=== PATIENT | female | born 1985 | race Caucasian/White ===

== ENCOUNTER → 2018-04-19 22:15 | Outpatient (REF) | payer OTHER, SELFPAY ==
[2018-04-19 22:51] LABS: ALT 12 U/L (12-78); AST 18 U/L (15-37); Albumin 3.9 g/dL (3.4-5.0); Alkaline Phosphatase 66 U/L (46-116); Anion Gap 8.7 mmol/L (3-11); BUN 15 mg/dL (7-18); Bilirubin, Total 0.5 mg/dL (0.2-1.0); CO2 27.3 mmol/L (21.0-32.0); CREATININE 0.95 mg/dL (0.55-1.02); Calcium 8.6 mg/dL (8.5-10.1); Chloride 105 mmol/L (98-107); Glucose 86 mg/dL (70-100); Sodium 141 mmol/L (136-145); Total Protein 6.9 g/dL (6.4-8.2)
== END ==
LOC: LBO 22:15
PROVIDERS: PCP Nurse Practitioner Family; Visit Provider Nurse Practitioner Family
DX: D69.6 Thrombocytopenia, unspecified (principal)
CPT/HCPCS: 36415; 80053

== ENCOUNTER 2018-06-13 11:55 | Outpatient (CLI) | payer OTHER, SELFPAY ==
[2018-06-13 12:25] LABS: Abs Immature Grans 0.01 k/cumm (0.0-0.09); Absolute Basophil Count 0.07 k/cumm (0.0-0.2); Absolute Lymphocyte Count 1.25 k/cumm (1.2-3.4); Absolute Monocyte Count 0.48 k/cumm (0.11-0.7); Absolute Neutrophil Count 2.79 k/cumm (1.2-6.7); Basophils % 1.5; Bilirubin Negative (Negative); Blood Negative (Negative); Clarity Clear; Eosinophils % 4.2; Glucose Negative (Negative); HCT 36.1 % (36.0-46.0); HGB 11.5 g/dL (12.0-15.5); Immature Grans % 0.2; Ketones Negative (Negative); Leukocyte Esterase Trace (Negative); Mean Corp. HGB Concentration 31.9 g/dL (32.0-36.0); Mean Corpuscular Hemoglobin 26.6 pg (27.0-33.0); Mean Corpuscular Volume 83.6 fL (80-95); Mean Platelet Volume 9.2 fL (8.0-11.0); Neutrophils % 58.1; Nitrite Negative (Negative); Platelet Count 292 x1000/uL (130-400); RBC 4.32 m/cumm (4.00-5.20); RBC Distribution Width 14.5 % (11.7-14.6); pH 7.5 (5-8)
[2018-06-13 12:36] LABS: Bacteria Moderate HPF (Negative); C & S Indicated? No/Sq. Contamination; Casts Negative LPF (Negative); Crystals Negative HPF (Negative); Epithelial Cells Moderate HPF (Negative); Mucus Heavy (Negative)
[2018-06-13 13:23] LABS: ALT 13 U/L (12-78); AST 17 U/L (15-37); Albumin 3.6 g/dL (3.4-5.0); Alkaline Phosphatase 62 U/L (46-116); Bilirubin, Direct 0.11 mg/dL (0.00-0.20); Bilirubin, Total 0.5 mg/dL (0.2-1.0); TSH 1.32 uIU/mL (0.358-3.74); Total Protein 6.2 g/dL (6.4-8.2)
[2018-06-13 14:02] LABS: Vitamin D 25 Total 16.1 ng/ml (30-100)
[2018-06-13 14:42] LABS: Vitamin B12 340 pg/mL (193-986)
== END 2018-06-13 12:15 ==
PROVIDERS: PCP Nurse Practitioner Family; Visit Provider Psychiatry & Neurology Neurology
DX: G35 Multiple sclerosis (principal); R53.83 Other fatigue; R79.89 Other specified abnormal findings of blood chemistry
CPT/HCPCS: 36415; 80076; 82306; 81003; 81015; 82607; 84443; 85025

== ENCOUNTER 2018-08-13 00:44 | Outpatient (CLI) | payer OTHER, SELFPAY ==
[2018-08-13] MEDS: Gadoterate meglumine 20 ML VIAL IVP (14:36)
--- NOTE | 2018-08-13 14:49 | DI.MRI_ITS ---
SYMPTOMS/DIAGNOSIS: MULTIPLE SCLEROSIS MRI OF THE BRAIN: Comparison is made with April,. T2 and FLAIR sagittal, T1, T2, FLAIR and gradient-echo axial and post gadolinium T1 axial and coronal sequences were performed. A few small foci of high T2 signal are seen in the posterior left parietal lobe, unchanged. A few other tiny lesions are seen in the right frontal and right parietal lobes. There is no evidence of enhancement. No new lesions are identified. There is no evidence of hemorrhage. The vascular flow voids appear intact. Sinuses and mastoid air cells appear clear. There is distortion at the globes related to mascara. IMPRESSION: Stable small scattered high signal lesions in the white matter without evidence of enhancement, consistent with patient's history of multiple sclerosis.
== END 2018-08-13 01:04 ==
PROVIDERS: PCP Nurse Practitioner Family; Visit Provider Psychiatry & Neurology Neurology
DX: G35 Multiple sclerosis (principal)
CPT/HCPCS: 70553

== ENCOUNTER 2018-09-04 10:45 | Outpatient (CLI) | payer OTHER, SELFPAY ==
[2018-09-04 11:44] LABS: Bilirubin Negative (Negative); Blood Negative (Negative); Clarity Clear; Glucose Negative (Negative); Ketones Trace mg/dL (Negative); Leukocyte Esterase Small (Negative); Nitrite Negative (Negative); Specific Gravity 1.025 (1.005-1.025); Urobilinogen 0.2 EU/dL (Up TO 0.2); pH 6.5 (5-8)
[2018-09-04 12:11] LABS: Abs Immature Grans 0.02 k/cumm (0.0-0.09); Absolute Basophil Count 0.07 k/cumm (0.0-0.2); Absolute Eosinophil Count 0.13 k/cumm (0.0-0.7); Absolute Lymphocyte Count 1.14 k/cumm (1.2-3.4); Absolute Monocyte Count 0.39 k/cumm (0.11-0.7); Absolute Neutrophil Count 2.55 k/cumm (1.2-6.7); Basophils % 1.6; HCT 34.6 % (36.0-46.0); Immature Grans % 0.5; Lymphocytes % 26.5; Mean Corp. HGB Concentration 31.8 g/dL (32.0-36.0); Mean Corpuscular Hemoglobin 25.9 pg (27.0-33.0); Mean Corpuscular Volume 81.4 fL (80-95); Mean Platelet Volume 9.3 fL (8.0-11.0); Monocytes % 9.1; Neutrophils % 59.3; Platelet Count 303 x1000/uL (130-400); RBC 4.25 m/cumm (4.00-5.20); RBC Distribution Width 14.6 % (11.7-14.6)
[2018-09-04 12:59] LABS: Bacteria Few HPF (Negative); C & S Indicated? No/Sq. Contamination; Casts Negative LPF (Negative); Crystals Negative HPF (Negative); Epithelial Cells Moderate HPF (Negative); Mucus Moderate (Negative); RBC Negative (0-2)
[2018-09-04 15:19] LABS: ALT 12 U/L (12-78); AST 19 U/L (15-37); Albumin 3.7 g/dL (3.4-5.0); Alkaline Phosphatase 54 U/L (46-116); Anion Gap 7.5 mmol/L (3-11); BUN 17 mg/dL (7-18); Bilirubin, Total 0.7 mg/dL (0.2-1.0); CO2 25.5 mmol/L (21.0-32.0); CREATININE 0.81 mg/dL (0.55-1.02); Calcium 8.8 mg/dL (8.5-10.1); Chloride 107 mmol/L (98-107); Glucose 78 mg/dL (70-100); Sodium 140 mmol/L (136-145); Total Protein 6.5 g/dL (6.4-8.2)
== END 2018-09-04 11:05 ==
PROVIDERS: PCP Nurse Practitioner Family
DX: G35 Multiple sclerosis (principal)
CPT/HCPCS: 36415; 80053; 81003; 81015; 85025

== ENCOUNTER 2018-10-11 12:46 | Outpatient (CLI) | payer OTHER, SELFPAY ==
[2018-10-11 13:56] LABS: Iron 19 ug/dL (50-175); Total Iron Binding Capacity 363 ug/dL (250-450); Transferrin Sat 5 % (15-50)
[2018-10-11 14:07] LABS: TSH 1.59 uIU/mL (0.358-3.74)
[2018-10-14 12:52] LABS: Varicella IgG Antibody Positive
== END 2018-10-11 13:06 ==
PROVIDERS: PCP Legal Medicine; Visit Provider Legal Medicine
DX: D64.9 Anemia, unspecified (principal); E05.00 Thyrotoxicosis with diffuse goiter without thyrotoxic crisis or storm; Z11.59 Encounter for screening for other viral diseases
CPT/HCPCS: 36415; 86787; 83540; 83550; 84443

== ENCOUNTER 2018-10-24 14:49 | Outpatient (CLI) | payer OTHER, SELFPAY ==
[2018-10-24 15:39] LABS: Abs Immature Grans 0.01 k/cumm (0.0-0.09); Absolute Basophil Count 0.05 k/cumm (0.0-0.2); Absolute Lymphocyte Count 1.43 k/cumm (1.2-3.4); Absolute Neutrophil Count 2.63 k/cumm (1.2-6.7); Eosinophils % 4.1; HCT 34.3 % (36.0-46.0); HGB 10.8 g/dL (12.0-15.5); Immature Grans % 0.2; Lymphocytes % 29.7; Mean Corp. HGB Concentration 31.5 g/dL (32.0-36.0); Mean Corpuscular Hemoglobin 25.7 pg (27.0-33.0); Mean Corpuscular Volume 81.7 fL (80-95); Mean Platelet Volume 9.9 fL (8.0-11.0); Monocytes % 10.4; Neutrophils % 54.6; Platelet Count 266 x1000/uL (130-400); White Blood Cell Count 4.82 k/cumm (4.4-10.8)
[2018-10-24 15:58] LABS: Bilirubin Negative (Negative); Blood Negative (Negative); Clarity Clear; Glucose Negative (Negative); Ketones Trace mg/dL (Negative); Leukocyte Esterase Negative (Negative); Nitrite Negative (Negative)
[2018-10-24 17:29] LABS: ALT 15 U/L (12-78); AST 22 U/L (15-37); Albumin 3.6 g/dL (3.4-5.0); Alkaline Phosphatase 69 U/L (46-116); Anion Gap 9.3 mmol/L (3-11); BUN 22 mg/dL (7-18); Bilirubin, Total 0.3 mg/dL (0.2-1.0); CO2 27.7 mmol/L (21.0-32.0); CREATININE 0.73 mg/dL (0.55-1.02); Calcium 8.6 mg/dL (8.5-10.1); Chloride 107 mmol/L (98-107); Glucose 76 mg/dL (70-100); Potassium 3.9 mmol/L (3.5-5.1); Sodium 144 mmol/L (136-145); Total Protein 6.5 g/dL (6.4-8.2); Vitamin B12 369 pg/mL (193-986); Vitamin D 25 Total 12.4 ng/ml (30-100)
== END 2018-10-24 15:09 ==
PROVIDERS: PCP Legal Medicine; Visit Provider Nurse Practitioner Adult Health
DX: R53.83 Other fatigue (principal); R79.89 Other specified abnormal findings of blood chemistry; G35 Multiple sclerosis
CPT/HCPCS: 36415; 80053; 82306; 81003; 82607; 85025

== ENCOUNTER 2018-10-31 01:35 | Outpatient (RCR) | payer OTHER, SELFPAY ==
[2018-10-31] MEDS: Normal Saline Flush 10 ML SYR IVP (08:15)
== END 2018-10-31 23:59 | disposition home or self-care (01) ==
LOC: INF 01:35
PROVIDERS: PCP Legal Medicine; Visit Provider Internal Medicine
DX: G35 Multiple sclerosis (principal)
CPT/HCPCS: 96365; J2930

== ENCOUNTER 2018-11-01 01:24 | Outpatient (RCR) | payer OTHER, SELFPAY ==
[2018-11-01] MEDS: Normal Saline Flush 10 ML SYR IVP (07:16)
== END 2018-12-01 23:59 | disposition home or self-care (01) ==
LOC: INF 01:24
PROVIDERS: PCP Legal Medicine; Visit Provider Internal Medicine
DX: G35 Multiple sclerosis (principal)
CPT/HCPCS: 96365; J2930

== ENCOUNTER 2018-12-26 12:50 | Outpatient (CLI) | payer OTHER, SELFPAY ==
[2018-12-26 13:40] LABS: Abs Immature Grans 0.02 k/cumm (0.0-0.09); Absolute Basophil Count 0.07 k/cumm (0.0-0.2); Absolute Eosinophil Count 0.15 k/cumm (0.0-0.7); Absolute Lymphocyte Count 1.62 k/cumm (1.2-3.4); Absolute Monocyte Count 0.53 k/cumm (0.11-0.7); Absolute Neutrophil Count 3.57 k/cumm (1.2-6.7); Basophils % 1.2; Eosinophils % 2.5; HCT 34.9 % (36.0-46.0); Immature Grans % 0.3; Lymphocytes % 27.2; Mean Corp. HGB Concentration 31.5 g/dL (32.0-36.0); Mean Corpuscular Hemoglobin 25.6 pg (27.0-33.0); Mean Corpuscular Volume 81.4 fL (80-95); Mean Platelet Volume 9.2 fL (8.0-11.0); Monocytes % 8.9; Neutrophils % 59.9; Platelet Count 344 x1000/uL (130-400); RBC 4.29 m/cumm (4.00-5.20); RBC Distribution Width 15.1 % (11.7-14.6); White Blood Cell Count 5.96 k/cumm (4.4-10.8)
== END 2018-12-26 13:10 ==
PROVIDERS: PCP Legal Medicine; Visit Provider Legal Medicine
DX: D64.9 Anemia, unspecified (principal)
CPT/HCPCS: 36415; 85025

== ENCOUNTER 2019-03-11 11:16 | Outpatient (REF) | payer OTHER, SELFPAY ==
--- NOTE | 2019-03-11 11:00 | PAPFT_PTH ---
PATIENT: Adriana Saxena LOC: [facility] U#:[id number] AGE/SX: 33/F ROOM: RE03/11/[address]: Robin Foster MD : [id number] BED: DIS: 03/11/2019 SPEC #: [id number] RECD: 03/11/19 12:55 STATUS: HEATHER RELouisa #: [id number] MILANA: 03/11/19 11:[address]: Robin Foster DEPT: [facility] Cytology RECD BY: Marlena Luque ENTERED: 03/11/19 12:55 SP TYPE: PAPFT OTHR DR: Sonya Pagan Tissues: 1 - CX/ENDOCX FOR PAP SMEARS Procedures: PAP THIN PREP/UVM Screening HPV DNA PROBE Comments: [id number]
== END 2019-03-11 11:36 ==
LOC: LBN 11:16
PROVIDERS: PCP Legal Medicine; Visit Provider Obstetrics & Gynecology
DX: Z12.4 Encounter for screening for malignant neoplasm of cervix (principal); Z11.51 Encounter for screening for human papillomavirus (HPV)
CPT/HCPCS: 88142; 87624

== ENCOUNTER 2019-04-07 00:30 | Outpatient (CLI) | payer OTHER, SELFPAY ==
--- NOTE | 2019-04-07 14:06 | DI.MRI_ITS ---
SYMPTOM/DIAGNOSIS: MS WITH RECENT FLARE UP, NOW STABLE, G35 BRAIN MRI: Comparison is made with 08/13/18. T 2 and FLAIR sagittal, T 1, T 2, FLAIR, diffusion and gradient echo axial sequences were performed. Several scattered foci of high signal in the white matter are again noted, unchanged when compared with the previous exam. The largest lesion in the left parietal lobe, adjacent to the posterior horn of the left lateral ventricle. No new abnormalities are identified. The ventricles remain normal in size. IMPRESSION: Stable white matter lesions.
== END 2019-04-07 00:50 ==
PROVIDERS: PCP Legal Medicine; Visit Provider Psychiatry & Neurology Neurology
DX: G35 Multiple sclerosis (principal); R90.82 White matter disease, unspecified
CPT/HCPCS: 70551

== ENCOUNTER 2019-05-15 10:07 | Outpatient (CLI) | payer OTHER, SELFPAY ==
[2019-05-15 10:48] LABS: Abs Immature Grans 0.02 k/cumm (0.0-0.09); Absolute Basophil Count 0.07 k/cumm (0.0-0.2); Absolute Eosinophil Count 0.11 k/cumm (0.0-0.7); Absolute Lymphocyte Count 1.17 k/cumm (1.2-3.4); Absolute Monocyte Count 0.39 k/cumm (0.11-0.7); Absolute Neutrophil Count 2.53 k/cumm (1.2-6.7); Basophils % 1.6; Eosinophils % 2.6; HCT 40.1 % (36.0-46.0); HGB 12.9 g/dL (12.0-15.5); Immature Grans % 0.5; Lymphocytes % 27.3; Mean Corp. HGB Concentration 32.2 g/dL (32.0-36.0); Mean Corpuscular Hemoglobin 26.5 pg (27.0-33.0); Mean Corpuscular Volume 82.3 fL (80-95); Mean Platelet Volume 9.5 fL (8.0-11.0); Monocytes % 9.1; Neutrophils % 58.9; Platelet Count 339 x1000/uL (130-400); RBC 4.87 m/cumm (4.00-5.20); RBC Distribution Width 15.1 % (11.7-14.6); White Blood Cell Count 4.29 k/cumm (4.4-10.8)
[2019-05-15 11:27] LABS: Iron 38 ug/dL (50-175)
[2019-05-15 11:51] LABS: Vitamin D 25 Total 18.7 ng/ml (30-100)
[2019-05-15 12:03] LABS: ALT 13 U/L (14-59); AST 17 U/L (15-37); Albumin 4.1 g/dL (3.4-5.0); Alkaline Phosphatase 60 U/L (46-116); Anion Gap 7.2 mmol/L (3-11); BUN 17 mg/dL (7-18); Bilirubin, Total 0.6 mg/dL (0.2-1.0); CO2 26.8 mmol/L (21.0-32.0); CREATININE 0.81 mg/dL (0.55-1.02); Calculated LDL 90 mg/dL; Chloride 107 mmol/L (98-107); Cholesterol 185 mg/dL (50-200); Folate 10.4 ng/mL (8.6-20.0); Glucose 81 mg/dL (70-100); HDL Cholesterol 86 mg/dL (40-60); Potassium 4.1 mmol/L (3.5-5.1); Sodium 141 mmol/L (136-145); TSH 1.62 uIU/mL (0.36-3.74); Total Protein 7.1 g/dL (6.4-8.2); Triglyceride 46 mg/dL (30-150); Vitamin B12 406 pg/mL (193-986)
[2019-05-15 12:14] LABS: PHOSPHORUS 3.5 mg/dL (2.6-4.7)
[2019-05-16 11:54] LABS: Parathyroid Hormone,Intact 64 pg/ml (19-88)
[2019-05-16 14:03] LABS: Copper, Serum 1.14 mcg/mL (0.75-1.45)
[2019-05-18 10:50] LABS: Thiamine (Vitamin B1), WB 112 nmol/L (70-180)
== END 2019-05-15 10:27 ==
PROVIDERS: PCP Nurse Practitioner Family
DX: R10.13 Epigastric pain (principal); E61.1 Iron deficiency; E21.3 Hyperparathyroidism, unspecified; K80.20 Calculus of gallbladder without cholecystitis without obstruction; E55.9 Vitamin D deficiency, unspecified
CPT/HCPCS: 36415; 80053; 80061; 82306; 82525; 82607; 82746; 83540; 83735; 83970; 84100; 84425; 84443; 85025

== ENCOUNTER 2019-07-21 13:13 | Emergency (ER) | payer OTHER, SELFPAY ==
[2019-07-21 13:17] VITALS: BP 131/68; PULSE 84; RESP 18; TEMP 36.5; O2SAT 99
--- NOTE | 2019-07-21 13:33 | ED.GENADUL_ITS ---
Discharge Plan Disposition Patient Disposition: HOME Condition: Good Discharge Details Chief Complaint: Sorethroat Clinical Impression: Thyroid nodule Primary Care Provider: Javon Bach ED Provider: Erika Khan Home Meds and New Rx's Prescriptions: Continued oxcarbazepine [Trileptal] 150 mg tablet 150 mg PO BID RF: 0 valacyclovir 500 mg tablet 500 mg PO Q12H Qty: 60 RF: 3 methylphenidate HCl [Ritalin] 5 mg tablet 20 mg PO DAILY RF: 0 escitalopram oxalate [Lexapro] 10 mg tablet 20 mg PO DAILY RF: 0 ergocalciferol (vitamin D2) 50,000 unit capsule 50,000 unit PO QWEEK Qty: 12 RF: 3 baclofen 10 MG tablet 10 mg PO QID PRNRF: 0 Discharge Instructions Instructions: Thyroid Nodules (ED) Additional Instructions: Large nodule was noted on your thyroid. Plan for this to be biopsied by Dr. Torres as scheduled. Please follow-up with primary care. If you develop difficulty swallowing, shortness of breath or the new/worsening symptoms please seek care urgently once again. Referrals: Javon Bach NP [Primary Care Provider] - Kwadwo Torres MD [ [facility] STAFF PHYSICIAN] - Discharge Data Discharge Date/Time-TO BE ENTERED AT DEPARTURE: 07/21/19 15:38 Medical Decision Making Patient is a 33-year-old female presents today with chief complaint of right- sided throat pain. The pain is worse with swallowing. Pain is been consistent over the past month. Reports constant discomfort that is worsened with swallowing. No fevers or chills. Despite antibiotic treatment, has progr essively worsened. No thyroid dysfunction. Patient has a notable palpable mass on the right side of the throat with well-defined edges. Unable to palpate the inferior most aspect of the mass. May be coming off of the thyroid. Difficult to be differentiated thyroid from this mass but the left-sided thyroid is normal. Swelling well. No stridor. No palpable lymphadenopathy. Lungs are clear. Plan for ultrasound to evaluate for the pathology. Also obtain baseline labs, particularly for thyroid dysfunction. Ultrasound reviewed by radiologist FINDINGS: Palpable abnormality corresponds to a circumscribed hypervascular nodule measuring 5.1 x 2.4 x 2.9 cm. This compresses the normal thyroid tissue. The left lobe is normal in size and appearance. The isthmus measures 3 millimeters in thickness and appears normal. IMPRESSION: Palpable abnormality corresponds to a large thyroid nodule. FNA is recommended for further evaluation. TSH WNL. Labs are otherwise unremarkable. Discussed these findings with the patient. Advised the fine-needle aspiration is recommended. We will attempt to set this up for aspiration soon as possible. Consulted with ENT who will perform the recommended fine-needle aspiration as soon as possible. I did recheck to the patient's primary care provider and pass along this information. ENT advised this likely a follicular nodule. We were able to make an upcoming appointment for the patient. She is given strict return precautions. All her questions and concerns were addressed she is in agreement this plan. HPI General Mode of arrival: ambulatory . Date/Time Provider Initiated Documentation: 07/21/19 13:15 . Limitations to Documentation: no limitations . Information obtained by: patient and RN notes reviewed . HPI Narrative: Patient is a pleasant 33-year-old female presenting today with chief complaint of right-sided sore throat. Reports that the right-sided discomfort began approximately 1 month ago. Was seen by her primary care attempted with treatment of azithromycin with no improvement in her symptoms. It was noted yesterday by coworker to have swelling on the right side of the throat. No known thyroid dysfunction. She reports she has had this checked multiple times historically no abnormalities previously noted. She denies any difficulty breathing, shortness of breath, difficulty swallowing. She does have discomfort with swallowing and indicates that her right mid trachea is area of discomfort. Related Data Home Medications Medication Instructions Recorded Confirmed baclofen 10 mg PO QID PRN 04/23/17 07/21/19 oxcarbazepine 150 mg tablet 150 mg PO BID tab 10/29/18 07/21/19 valacyclovir 500 mg tablet 500 mg PO Q12H #60 tab 10/29/18 07/21/19 escitalopram oxalate 10 mg tablet 20 mg PO DAILY 02/27/19 07/21/19 methylphenidate HCl 5 mg tablet 20 mg PO DAILY tab 02/27/19 07/21/19 ergocalciferol (vitamin D2) 50,000 50,000 unit PO QWEEK #12 cap 05/08/19 07/21/19 unit capsule Previous Rx's Medication Instructions Recorded valacyclovir 500 mg tablet 500 mg PO Q12H #60 tab 10/29/18 ergocalciferol (vitamin D2) 50,000 50,000 unit PO QWEEK #12 cap 05/08/19 unit capsule Allergies Allergy/AdvReac Type Severity Reaction Status Date / Time Penicillins Allergy Verified 07/21/19 13:22 DERMABOND GLUE Allergy Unknown Uncoded 07/21/19 13:22 General Stated Complaint: Sorethroat KATIE: 3 Review of Systems Constitutional Constitutional: Reports as per HPI, Denies chills, Denies fever(s), Denies headache(s), Reports poor appetite and Reports weight loss (14lb weight loss over last month) Eyes Eyes: Reports as per HPI, Denies eye discharge and Denies irritation ENT Ears, Nose, Mouth, and Throat: Reports as per HPI and Denies headache(s) Cardiovascular Cardiovascular: Reports as per HPI, Denies chest pain and Denies dyspnea Respiratory Respiratory: Reports as per HPI and Denies dyspnea Gastrointestinal Gastrointestinal: Reports as per HPI, Denies abdominal pain, Denies change in bowel habits, Denies nausea and Denies vomiting Integumentary/Breasts Skin/Breast: Reports as per HPI and Denies rash Neurologic Neurologic: Reports as per HPI and Denies headache(s) [facility] Medical History Contraception, device intrauterine (Chronic) inserted 2018 Multiple sclerosis (Chronic) 4 enhancing lesions on MRI 2018. unchanged. Obesity (BMI 30-39.9) (Chronic) Hx of morbid obesity. s/p gastric sleeve surgery. Surgical History Bariatric surgery status (Resolved) s/p gastric sleeve H/O arthroscopic knee surgery (Resolved) History of tonsillectomy (Resolved) Social History Smoking/Tobacco Use Status: Current every day Alcohol Intake: current Alcohol Intake frequency: a few times a month Drug use: Never Household members: family Number of Children: 1 current occupation: [employer] Do you feel safe in your relationship?: Yes Female Reproductive History Menstrual control method: copper IUCD History History 3 Para Hx # Term Pregnancies 1 Multiple births Hx # Pregnancies Ectopic pregnancies AB induced Hx Number of Living Children 1 AB spontaneous 1 Exam Const General: cooperative, healthy appearing, comfortable, no acute distress, well developed and well groomed Nutritional Appearance: average body habitus and well nourished Orientation: alert and awake [facility] Head: normal to inspection, normocephalic and atraumatic Ears: hearing grossly normal bilaterally, external ears normal and TM's normal bilaterally General nose exam: external nose normal and nares normal Face and sinus: normal facial exam, sinuses nontender and face symmetric Mouth: oral mucosae normal, lip normal, tongue normal, oropharynx normal and moist mucous membranes Teeth and gingiva: dentition normal Throat: posterior oropharynx normal, tonsils normal and uvula midline Eyes General: appearance normal, both eyes and all related structures Neck Neck: full ROM, no lymphadenopathy, no meningeal signs, trachea midline and anterior neck swelling (as drawn below) Neck images: 1. area of localized swelling, unable to palpate the inferior most aspect. No erythema, warmth. No fluctuance. Unable to palpate right side of thyroid, what is palpable feels normal. Resp Effort & Inspection: normal respiratory effort, able to speak in complete se ntences and no respiratory distress Auscultation: clear to auscultation bilaterally, no rales, no rhonchi and no wheezes Cardio Rate: regular rate Rhythm: regular rhythm Heart Sounds: S1 normal and S2 normal Skin General skin exam: no rashes or lesions noted Neuro General: alert and awake Cognition: normal cognition Speech: speech normal Gait: normal gait Psych Appearance: grossly normal and well kempt Mental Status: mental status grossly normal Speech and Movement: speech and movement normal Course Vital Signs Vital signs: Vital Signs Temperature 36.5 C 07/21/19 13:17 Pulse 84 07/21/19 13:17 Respiratory Rate 18 07/21/19 13:17 Blood Pressure 131/68 07/21/19 13:17 Pulse Oximetry 99 07/21/19 13:17 Temperature 36.5 C 07/21/19 13:17 Temperature Source Oral 07/21/19 13:17 Pulse 84 07/21/19 13:17 Respiratory Rate 18 07/21/19 13:17 Respiratory Effort Non-Labored 07/21/19 13:25 Blood Pressure 131/68 07/21/19 13:17 Blood Pressure Position Sitting 07/21/19 13:17 Pulse Oximetry 99 07/21/19 13:17 Oxygen Delivery Method Room Air 07/21/19 13:17 Oxygen Flow Rate 0 07/21/19 13:17 Pain Level 5 07/21/19 13:17
--- NOTE | 2019-07-21 13:39 | DI.US_ITS ---
EXAM: US SOFT TISSUE HEAD OR NECK CLINICAL HISTORY: palpable mass right side of trachea TECHNIQUE: Ultrasound performed using standard protocol. COMPARISON: MRI - CERVICAL SPINE W/WO from 11/09/2016 FINDINGS: Palpable abnormality corresponds to a circumscribed hypervascular nodule measuring 5.1 x 2.4 x 2.9 c m. This compresses the normal thyroid tissue. The left lobe is normal in size and appearance. The i sthmus measures 3 millimeters in thickness and appears normal. IMPRESSION: Palpable abnormality corresponds to a large thyroid nodule. FNA is recommended for further evaluatio n.
[2019-07-21] MEDS: Normal Saline Flush 10 ML SYR IVP (13:54)
[2019-07-21 14:05] LABS: Abs Immature Grans 0.01 k/cumm (0.0-0.09); Absolute Eosinophil Count 0.15 k/cumm (0.0-0.7); Absolute Lymphocyte Count 1.37 k/cumm (1.2-3.4); Absolute Monocyte Count 0.36 k/cumm (0.11-0.7); Absolute Neutrophil Count 2.59 k/cumm (1.2-6.7); Basophils % 2.2; Eosinophils % 3.3; HCT 37.2 % (36.0-46.0); HGB 12.1 g/dL (12.0-15.5); Immature Grans % 0.2; Lymphocytes % 29.9; Mean Corp. HGB Concentration 32.5 g/dL (32.0-36.0); Mean Corpuscular Hemoglobin 27.3 pg (27.0-33.0); Mean Platelet Volume 9.4 fL (8.0-11.0); Monocytes % 7.9; Neutrophils % 56.5; Platelet Count 314 x1000/uL (130-400); RBC 4.43 m/cumm (4.00-5.20); RBC Distribution Width 13.9 % (11.7-14.6); White Blood Cell Count 4.58 k/cumm (4.4-10.8)
[2019-07-21 14:27] LABS: ALT 12 U/L (14-59); AST 14 U/L (15-37); Albumin 3.8 g/dL (3.4-5.0); Alkaline Phosphatase 53 U/L (46-116); Anion Gap 5.8 mmol/L (3-11); BUN 17 mg/dL (7-18); Bilirubin, Total 0.6 mg/dL (0.2-1.0); CO2 28.2 mmol/L (21.0-32.0); Calcium 8.5 mg/dL (8.5-10.1); Chloride 106 mmol/L (98-107); Glucose 70 mg/dL (70-100); Potassium 3.5 mmol/L (3.5-5.1); Sodium 140 mmol/L (136-145); TSH (W/Ref FT4) 1.07 uIU/mL (0.36-3.74); Total Protein 6.7 g/dL (6.4-8.2)
== END 2019-07-21 15:38 | disposition home or self-care (01) ==
PROVIDERS: Emergency Provider Physician Assistant; PCP Nurse Practitioner Family
DX: E04.1 Nontoxic single thyroid nodule (principal)
CPT/HCPCS: 36415; 76536; 80053; 99284; 84443; 85025

== ENCOUNTER 2019-07-24 13:51 | Outpatient (CLI) | payer OTHER, SELFPAY ==
--- NOTE | 2019-07-24 13:00 | DI.CT_ITS ---
EXAM: CT NECK W CLINICAL HISTORY: RT SIDED NECK PAIN, ? MASS, KNOWN RT THYROID NODULE TECHNIQUE: Imaging Protocol: Axial computed tomography images with coronal and sagittal reformatted images were created and reviewed CONTRAST MATERIAL: Intravenous: Omnipaque 350 Contrast volume:100 mL contrast route:IV - Oral: No COMPARISON: No exams were available for comparison FINDINGS: Parotids/submandibular gland: Normal. Lymphadenopathy: There is scattered lymph nodes seen all measuring less than 8 mm in short axis diam eter which are physiologic in nature. Carotids/Jugular: Within normal limits. Soft tissues: The floor the mouth is unremarkable. The epiglottis and vocal cords are within normal limits. Images through both lung apices are unremarkable. Thyroid gland: There is a complex mass in the right lobe of the thyroid gland which measures 3.1 cent imeters AP x 3.1 centimeters transverse x 5.3 centimeters craniocaudally. There are enhancing nodula r components internally. The mass displaces the trachea to the left with mild narrowing of the trans verse diameter of the trachea. There is no infiltration of the surrounding soft tissues. The left l obe of the thyroid gland is unremarkable. The nasopharynx, oropharynx, hypopharynx and larynx are unremarkable. Bones: The cervical spine is unremarkable. Paranasal sinuses: Clear. IMPRESSION: 5.3 centimeter complex cystic and solid mass in the right lobe of the thyroid gland. The mass causes leftward deviation of the trachea. There is no infiltration of the surrounding soft tissues. No ce rvical adenopathy is present. Biopsy of the right thyroid nodule should be considered. DATA REPOSITORY: All CT scans at this facility are submitted to the National Radiology Data Registry (NRDR) Dose Index Registry (DIR) with the [employer] (ACR). RADIATION OPTIMIZATION: All CT scans at this facility use at least one of these dose optimization te chniques: automated exposure control; mA and/or kV adjustment per patient size (includes targeted exa ms where dose is matched to clinical indication); or iterative reconstruction.
[2019-07-24] MEDS: Omnipaque 350 MG/ML 100 ML BTL IJ (13:51)
== END 2019-07-24 14:11 ==
PROVIDERS: PCP Nurse Practitioner Family; Visit Provider Otolaryngology
DX: M54.2 Cervicalgia (principal); E04.1 Nontoxic single thyroid nodule; R59.0 Localized enlarged lymph nodes
CPT/HCPCS: 70491; J3490

== ENCOUNTER 2019-08-15 09:31 | Outpatient (REF) | payer OTHER, SELFPAY ==
[2019-08-15 13:02] LABS: HCT 35.9 % (36.0-46.0); HGB 11.2 g/dL (12.0-15.5); Mean Corp. HGB Concentration 31.2 g/dL (32.0-36.0); Mean Corpuscular Hemoglobin 26.7 pg (27.0-33.0); Mean Corpuscular Volume 85.5 fL (80-95); Mean Platelet Volume 10.1 fL (8.0-11.0); Platelet Count 310 x1000/uL (130-400); RBC Distribution Width 14.1 % (11.7-14.6); White Blood Cell Count 3.94 k/cumm (4.4-10.8)
[2019-08-15 13:49] LABS: T4 7.1 ug/mL (4.7-13.3); TSH 1.25 uIU/mL (0.36-3.74); Vitamin B12 345 pg/mL (193-986)
[2019-08-15 14:05] LABS: FREE T4 0.83 ng/dL (0.76-1.46)
[2019-08-15 23:01] LABS: T3,Free 3.3 pg/mL (2.8-5.3)
[2019-08-15 23:16] LABS: T3, Total 105 ng/dL (97-169)
[2019-08-18 08:42] LABS: Vitamin D 25 Total 14.8 ng/ml (30-100)
== END 2019-08-15 09:51 ==
LOC: NCHCN 09:31
PROVIDERS: PCP Nurse Practitioner Family; Visit Provider Nurse Practitioner Family
DX: G35 Multiple sclerosis (principal)
CPT/HCPCS: 82306; 85027; 82607; 84436; 84439; 84443; 84480; 84481

== ENCOUNTER 2019-10-01 07:34 | Outpatient (CLI) | payer OTHER, SELFPAY ==
[2019-10-01 08:47] LABS: Calcium 8.5 mg/dL (8.5-10.1); FREE T4 0.97 ng/dL (0.76-1.46); PHOSPHORUS 3.3 mg/dL (2.6-4.7); TSH 8.39 uIU/mL (0.36-3.74)
[2019-10-02 04:54] LABS: Vitamin D 25 Total 20.2 ng/ml (30-100)
== END 2019-10-01 07:54 ==
PROVIDERS: PCP Nurse Practitioner Family; Visit Provider Internal Medicine
DX: E04.1 Nontoxic single thyroid nodule (principal); R20.2 Paresthesia of skin; E55.9 Vitamin D deficiency, unspecified
CPT/HCPCS: 36415; 82306; 82040; 82310; 84100; 84439; 84443

== ENCOUNTER 2019-10-28 08:02 | Outpatient (CLI) | payer OTHER, SELFPAY ==
[2019-10-28 09:26] LABS: Calcium 8.4 mg/dL (8.5-10.1); FREE T4 0.96 ng/dL (0.76-1.46); TSH 3.37 uIU/mL (0.36-3.74)
== END 2019-10-28 08:22 ==
PROVIDERS: PCP Nurse Practitioner Family; Visit Provider Internal Medicine
DX: R00.2 Palpitations (principal); Z98.890 Other specified postprocedural states
CPT/HCPCS: 36415; 82310; 84439; 84443

== ENCOUNTER 2019-12-31 03:45 | Outpatient (CLI) | payer OTHER, SELFPAY ==
[2019-12-31 09:01] LABS: ALT 14 U/L (14-59); AST 18 U/L (15-37); Albumin 3.8 g/dL (3.4-5.0); Alkaline Phosphatase 52 U/L (46-116); Anion Gap 9.6 mmol/L (3-11); BUN 16 mg/dL (7-18); Bilirubin, Total 0.5 mg/dL (0.2-1.0); CO2 23.4 mmol/L (21.0-32.0); CREATININE 0.96 mg/dL (0.55-1.02); Calcium 8.7 mg/dL (8.5-10.1); Chloride 104 mmol/L (98-107); Glucose 105 mg/dL (74-106); Potassium 3.9 mmol/L (3.5-5.1); Sodium 137 mmol/L (136-145); Total Protein 6.7 g/dL (6.4-8.2)
[2019-12-31 09:45] LABS: Bilirubin Negative (Negative); Blood Negative (Negative); Clarity Clear (Clear); Glucose Negative (Negative); Ketones Negative (Negative); Leukocyte Esterase Negative (Negative); Nitrite Negative (Negative); Specific Gravity >= 1.030 (1.005-1.025); Urobilinogen 0.2 EU/dL (Up TO 0.2); pH 5.5 (5-8)
[2020-01-01 10:55] LABS: TSH 4.59 uIU/mL (0.36-3.74)
[2020-01-02 09:21] LABS: Thyroglobulin Antibody <15 U/mL (<=60)
[2020-01-14 12:14] LABS: Misc Referral (MAYO) See Comments
== END 2019-12-31 04:05 ==
PROVIDERS: Internal Medicine; PCP Nurse Practitioner Family; Visit Provider Psychiatry & Neurology Neurology
DX: G35 Multiple sclerosis (principal); C73 Malignant neoplasm of thyroid gland
CPT/HCPCS: 36415; 80053; 86255; 81003; 84443; 86800

== ENCOUNTER 2020-01-05 00:53 | Outpatient (CLI) | payer OTHER, SELFPAY ==
--- NOTE | 2020-01-05 06:30 | DI.MAMMO_ITS ---
EXAM: MG MAMMO SCREENING CLINICAL HISTORY: screening.z80.3, family h/o breast ca TECHNIQUE: Mammograms were interpreted according to the usual protocol including computer analysis w [employer] CAD system, tomosynthesis and C-view imaging. COMPARISON: 2018 FINDINGS: The breasts are composed of scattered fibroglandular densities, Breast Density category B. No suspicious masses or suspicious microcalcifications are seen. No skin thickening or abnormal axillary lymph nodes are seen. There has been no significant change from prior exams. IMPRESSION: BI-RADS category 1, negative mammogram. Yearly screening mammography is recommended. Breast density category B, scattered fibroglandular densities.
== END 2020-01-05 01:13 ==
PROVIDERS: PCP Nurse Practitioner Family; Visit Provider Obstetrics & Gynecology
DX: Z12.31 Encounter for screening mammogram for malignant neoplasm of breast (principal); Z80.3 Family history of malignant neoplasm of breast
CPT/HCPCS: 77063; 77067

== ENCOUNTER 2020-01-30 02:06 | Outpatient (CLI) | payer OTHER, SELFPAY ==
[2020-01-30 13:39] LABS: HCT 37.3 % (36.0-46.0); HGB 12.1 g/dL (12.0-15.5); Mean Corp. HGB Concentration 32.4 g/dL (32.0-36.0); Mean Corpuscular Hemoglobin 26.7 pg (27.0-33.0); Mean Corpuscular Volume 82.3 fL (80-95); Mean Platelet Volume 9.1 fL (8.0-11.0); Platelet Count 352 x1000/uL (130-400); RBC 4.53 m/cumm (4.00-5.20); RBC Distribution Width 14.3 % (11.7-14.6); White Blood Cell Count 5.66 k/cumm (4.4-10.8)
[2020-01-30 15:11] LABS: ALT 17 U/L (14-59); AST 21 U/L (15-37); Albumin 3.8 g/dL (3.4-5.0); Alkaline Phosphatase 57 U/L (46-116); Anion Gap 7.4 mmol/L (3-11); BUN 21 mg/dL (7-18); Bilirubin, Total 0.5 mg/dL (0.2-1.0); CO2 25.6 mmol/L (21.0-32.0); CREATININE 0.92 mg/dL (0.55-1.02); Calcium 8.6 mg/dL (8.5-10.1); Chloride 106 mmol/L (98-107); Glucose 89 mg/dL (74-106); Potassium 3.8 mmol/L (3.5-5.1); Sodium 139 mmol/L (136-145); TSH (W/Ref FT4) 2.73 uIU/mL (0.36-3.74); Total Protein 6.7 g/dL (6.4-8.2)
== END 2020-01-30 02:26 ==
PROVIDERS: PCP Nurse Practitioner Family; Visit Provider Nurse Practitioner Family
DX: E03.9 Hypothyroidism, unspecified (principal); R42 Dizziness and giddiness; D64.9 Anemia, unspecified
CPT/HCPCS: 36415; 80053; 85027; 84443

== ENCOUNTER 2020-02-03 02:28 | Outpatient (CLI) | payer OTHER, SELFPAY ==
--- NOTE | 2020-02-03 | DI.MRI_ITS ---
EXAM: MR CERVICAL SPINE WO CLINICAL HISTORY: MULTIPLE SCLEROSIS, G35 TECHNIQUE: Multiplanar multisequence MRI was performed. COMPARISON: MR MRI - CERVICAL SPINE W/WO from 11/09/2016 FINDINGS: MR examination cervical spine was performed according to the usual protocol. Posterior fossa structur es appear intact. No bony signal abnormality seen. No disc herniation identified in the cervical region. The bony spinal canal and neural foramina appea r intact. Spinal cord is of normal diameter and shows normal signal throughout. IMPRESSION: No focal abnormality seen. No spinal cord lesion identified in patient with reported history of multi ple sclerosis. DATA REPOSITORY:
--- NOTE | 2020-02-03 | DI.MRI_ITS ---
EXAM: MR BRAIN WO CLINICAL HISTORY: MULTIPLE SCLEROSIS, G35. TECHNIQUE: Multiplanar multisequence MRI was performed. MR examination of the brain was performed a ccording to the usual protocol. COMPARISON: MR BRAIN ORBIT FACE NECK WO,W from 04/23/2017 FINDINGS: Current examination is compared with most recent prior CT of 04/23/2017. Previously noted periventri cular white matter lesions consistent with multiple sclerosis are again seen. Little overall change in appearance in comparison with the prior study. Question tiny new focus of increased signal in rig ht occipital. No other convincing new lesions. No significant cerebral atrophy. The orbital and te mporal bone structures appear intact. No evidence of infarction on diffusion-weighted imaging. No e vidence of intracranial hemorrhage on susceptibility-weighted imaging. IMPRESSION: Predominantly stable white matter lesions consistent with multiple sclerosis. Question tiny new focu s of abnormal signal in right occipital lobe. No other significant findings. DATA REPOSITORY:
--- NOTE | 2020-02-03 | DI.MRI_ITS ---
EXAM: MR THORACIC SPINE WO CLINICAL HISTORY: MULTIPLE SCLEROSIS, G35. TECHNIQUE: Multiplanar multisequence MRI was performed. COMPARISON: MR MRI - CERVICAL SPINE W/WO from 11/09/2016 FINDINGS: MR examination of the thoracic spine was performed according to the usual protocol. No bony signal a bnormality seen. No central canal spinal stenosis or neural foraminal stenosis. No disc herniation identified. The spinal cord shows normal diameter and shows normal signal throughout including the conus medullar is. IMPRESSION: Normal thoracic spine MRI. DATA REPOSITORY:
== END 2020-02-03 02:48 ==
PROVIDERS: PCP Nurse Practitioner Family; Visit Provider Psychiatry & Neurology Neurology
DX: G35 Multiple sclerosis (principal)
CPT/HCPCS: 70551; 72141; 72146

== ENCOUNTER 2020-03-24 03:58 | Outpatient (CLI) | payer OTHER, SELFPAY ==
[2020-03-24 09:31] LABS: TSH 2.01 uIU/mL (0.36-3.74)
== END 2020-03-24 04:18 ==
PROVIDERS: PCP Nurse Practitioner Family; Visit Provider Internal Medicine
DX: E89.0 Postprocedural hypothyroidism (principal)
CPT/HCPCS: 36415; 84443

== ENCOUNTER 2020-04-08 14:50 | Outpatient (CLI) | payer OTHER, SELFPAY ==
--- NOTE | 2020-04-08 14:30 | DI.RAD_ITS ---
EXAM: XR LUMBAR SPINE COMPLETE CLINICAL HISTORY: Low back pain (?SI) s/p trauma 02/17/2020. LOW BACK PAIN M54.5 TECHNIQUE: COMPARISON: No exams were available for comparison FINDINGS: Five views were obtained. There is a moderate left convex lumbar scoliosis. The intervertebral disc spaces appear fairly well maintained. No fracture is seen. No evidence of spondylolysis or spondyl olisthesis. No other significant bony abnormality seen. IMPRESSION: Scoliosis, otherwise unremarkable examination.
== END 2020-04-08 15:10 ==
PROVIDERS: PCP Nurse Practitioner Family; Visit Provider Nurse Practitioner Family
DX: M41.9 Scoliosis, unspecified (principal); M54.5 Low back pain
CPT/HCPCS: 72110

== ENCOUNTER 2020-05-19 01:09 | Outpatient (CLI) | payer OTHER, SELFPAY ==
--- NOTE | 2020-05-19 | DI.MRI_ITS ---
EXAM: MR LUMBAR SPINE WO CLINICAL HISTORY: HERNIATION OF NUCLEUS,M53.80,PERSISTENT BACK AND THIGH PAIN AFTER WORK RE-. TECHNIQUE: Multiplanar multisequence MRI was performed. COMPARISON: No exams were available for comparison FINDINGS: No significant bony signal abnormality seen in the lumbar region. There is mild decreased signal in L4-5 and L5-S1 intervertebral discs consistent with mild disc degeneration. The conus medullaris appears intact. Mild facet arthropathy noted at L5-S1. Otherwise the facet joints appear fairly well maintained. There is a small to moderate sized left paracentral/left lateral disc herniation at L5-S1, there is p ossible impingement on the left S1 nerve root. Please correlate clinically. Otherwise the intervertebral discs appear intact throughout the lumbar spine. There is no evidence o f a bony central canal spinal stenosis or neural foraminal stenosis. IMPRESSION: Small to moderate-sized left paracentral/left lateral disc herniation at L5-S1 with possible impingem ent on left S1 nerve root. Mild facet arthropathy at L5-S1. DATA REPOSITORY:
== END 2020-05-19 01:29 ==
PROVIDERS: PCP Nurse Practitioner Family; Visit Provider Physician Assistant Medical
DX: M51.27 Other intervertebral disc displacement, lumbosacral region (principal); M47.817 Spondylosis without myelopathy or radiculopathy, lumbosacral region
CPT/HCPCS: 72148

== ENCOUNTER 2020-06-17 10:02 | Outpatient (REF) | payer OTHER, SELFPAY ==
[2020-06-17 18:24] LABS: HCT 38.8 % (36.0-46.0); MCH 27.1 pg (27.0-33.0); MCHC 30.9 % (32.0-36.0); MCV 87.6 fL (80-95); MPV 10.1 fL (8.0-11.0); Platelet Count 359 10^3/uL (130-400); RBC 4.43 10^6/uL (3.93-5.22); RDW-SD 44.7 fL; WBC 5.21 10^3/uL (4.4-10.8)
[2020-06-17 18:31] LABS: TSH (W/Ref FT4) 2.35 uIU/mL (0.36-3.74)
== END 2020-06-17 10:22 ==
LOC: NCHCN 10:02
PROVIDERS: PCP Nurse Practitioner Family; Visit Provider Nurse Practitioner Family
DX: E03.9 Hypothyroidism, unspecified (principal); D64.9 Anemia, unspecified
CPT/HCPCS: 85027; 84443

== ENCOUNTER 2020-06-21 01:19 | Outpatient (CLI) | payer OTHER, SELFPAY ==
--- NOTE | 2020-06-21 | DI.US_ITS ---
EXAM: US THYROID CLINICAL HISTORY: H/O PAPILLARY CA OF THYROID, s/P LOBECTOMY, NOW NEW MASS ON RT SIDE OF NECK, C73. TECHNIQUE: Ultrasound thyroid performed using standard protocol. COMPARISON: No exams were available for comparison FINDINGS: RIGHT LOBE: Status post right thyroid lobectomy. No recurrent mass. LEFT LOBE: Size: 4.3 x 1.1 x 1.2 cm Echogenicity: Normal. Vascularity: Normal. Nodules: None. Two tiny cysts, measuring between 1 and 2 millimeters in size. OTHER FINDINGS: None. IMPRESSION: Two tiny cysts in the right lobe of the thyroid. No suspicious masses. TI-RADS category 1. DATA REPOSITORY:
--- NOTE | 2020-06-21 | DI.US_ITS ---
EXAM: US SOFT TISSUE HEAD OR NECK CLINICAL HISTORY: H/O PAPILLARY CA OF THYROID,C73,S/P LOBECTOMY,NOW NEW MASS RT SIDE OF NECK. TECHNIQUE: Ultrasound was performed using standard protocol. COMPARISON: No exams were available for comparison FINDINGS: Sonographic assessment utilizing grayscale and color Doppler imaging was performed and targeted to th e area of clinical concern. No mass, cyst or adenopathy is seen. IMPRESSION: Negative ultrasound of the neck. DATA REPOSITORY:
== END 2020-06-21 01:39 ==
PROVIDERS: PCP Nurse Practitioner Family; Visit Provider Otolaryngology
DX: E04.1 Nontoxic single thyroid nodule (principal); C73 Malignant neoplasm of thyroid gland
CPT/HCPCS: 76536

== ENCOUNTER 2020-07-22 02:58 | Outpatient (CLI) | payer OTHER, SELFPAY ==
[2020-07-22 13:46] LABS: Albumin 3.8 g/dL (3.4-5.0); Calcium 8.7 mg/dL (8.5-10.1); PHOSPHORUS 3.9 mg/dL (2.6-4.7)
[2020-08-05 15:41] LABS: Parathyroid Hormone,Intact 55 pg/mL (15-65)
[2020-08-05 15:45] LABS: Thyroglobulin Tumor Marker 2.6 ng/mL
== END 2020-07-22 03:18 ==
PROVIDERS: PCP Nurse Practitioner Family; Visit Provider Internal Medicine
DX: C73 Malignant neoplasm of thyroid gland (principal); E83.51 Hypocalcemia
CPT/HCPCS: 36415; 82040; 82310; 83970; 84100; 84432; 86800

== ENCOUNTER 2020-07-28 13:13 | Outpatient (REF) | payer OTHER, SELFPAY ==
[2020-07-31 05:06] LABS: Patient Race White; SARS-CoV-2 RNA Undetected (Undetected); SARS-CoV-2 Specimen Source Nasal
== END 2020-07-28 13:33 ==
LOC: NCHCN 13:13
PROVIDERS: PCP Nurse Practitioner Family; Visit Provider Nurse Practitioner Family
DX: Z11.59 Encounter for screening for other viral diseases (principal)
CPT/HCPCS: U0003

== ENCOUNTER 2020-08-09 22:18 | Outpatient (REF) | payer SELFPAY ==
[2020-08-13 10:08] LABS: COVID-19 RT-PCR Result NEGATIVE (Negative)
== END 2020-08-09 22:38 ==
LOC: NCHCN 22:18
PROVIDERS: PCP Nurse Practitioner Family; Visit Provider Physician Assistant Medical
DX: Z11.59 Encounter for screening for other viral diseases (principal)
CPT/HCPCS: U0003

== ENCOUNTER 2020-08-26 15:04 | Outpatient (REF) | payer SELFPAY ==
[2020-08-27 16:24] LABS: COVID-19 RT-PCR UVMMC Result Negative (Negative)
== END 2020-08-26 15:24 ==
LOC: NCHCN 15:04
PROVIDERS: PCP Nurse Practitioner Family; Visit Provider Nurse Practitioner Family
DX: Z11.59 Encounter for screening for other viral diseases (principal)
CPT/HCPCS: U0003

== ENCOUNTER 2020-09-07 18:11 | Outpatient (REF) | payer BC, SELFPAY ==
[2020-09-08 01:11] LABS: COVID-19 RT-PCR UVMMC Result Negative (Negative)
== END 2020-09-07 18:31 ==
LOC: NCHCN 18:11
PROVIDERS: PCP Nurse Practitioner Family; Visit Provider Physician Assistant Medical
DX: Z11.52 Encounter for screening for COVID-19 (principal)
CPT/HCPCS: U0003

== ENCOUNTER 2020-09-17 04:45 | Outpatient (CLI) | payer BC, SELFPAY ==
--- NOTE | 2020-09-17 15:12 | DI.CT_ITS ---
EXAM: CT NECK W CLINICAL HISTORY: PAPILLARY THYROID CA,C73. TECHNIQUE: Imaging Protocol: Axial CT angiography was performed with multi-slice acquisition and mu lti-planar and/or 3D reconstructions. CONTRAST MATERIAL: Intravenous: Omnipaque 350 Contrast volume:structured data in ml COMPARISON: CT CT NECK W from 07/24/2019 FINDINGS: Thyroid Gland: Previously present large mass in the right thyroid lobe is no longer evident. The rig ht thyroid lobe is surgically absent. There is no abnormal tissue in the right thyroid bed nor lymph adenopathy. The left thyroid lobe appears unremarkable. Lymph nodes: There are no abnormal enlarged lymph nodes on either side of the neck nor in the supracl avicular regions. Salivary glands: Parotid and submandibular glands appear unremarkable. Nasopharynx: Tissues of nasopharynx appears symmetrical-unremarkable. Oropharynx/hypopharynx: The uvula is midline. There is no abnormal mass in the oral pharynx nor in t he vallecula. Free edge of the epiglottis appears unremarkable. Aryepiglottic folds appear unremark able. Larynx: Right vocal cord appears medially deviated, possibly significant. Subglottic airway appears unremarkable. Visualized lung apices: No nodules or infiltrates. IMPRESSION: 1. Compared to the prior CT scan of the member 2018 there is been interval right thyroid lobe resecti on. The previously present mass in the right thyroid lobe is no longer seen and there is no infiltra tive tissue nor adenopathy evident. The opposite-left thyroid lobe appears unremarkable. 2. There is asymmetry in the appearance of the vocal cords as described above. Recommend ENT consult ation direct visualization endoscopy to ensure that there is no vocal cord paralysis here. RADIATION DOSE DELIVERED: 467.22mGy.cm Total DLP DATA REPOSITORY: All CT scans at this facility are submitted to the National Radiology Data Registry (NRDR) Dose Index Registry (DIR) with the [employer] (ACR). RADIATION OPTIMIZATION: All CT scans at this facility use at least one of these dose optimization te chniques: automated exposure control; mA and/or kV adjustment per patient size (includes targeted exa ms where dose is matched to clinical indication); or iterative reconstruction.
[2020-09-17] MEDS: Normal Saline - Diluent 50 ML VIAL IV (15:21)
[2020-09-17] MEDS: Omnipaque 350 MG/ML 100 ML BTL IJ (15:22)
== END 2020-09-17 05:05 ==
PROVIDERS: PCP Nurse Practitioner Family; Visit Provider Otolaryngology
DX: C73 Malignant neoplasm of thyroid gland (principal)
CPT/HCPCS: 70491; J3490

== ENCOUNTER 2020-11-08 04:24 | Outpatient (CLI) | payer BC, SELFPAY ==
[2020-11-08 20:44] LABS: Abs Immature Grans 0.05 10^3/uL (0.0-0.06); Absolute Basophil Count 0.09 10^3/uL (0.0-0.2); Absolute Eosinophil Count 0.22 10^3/uL (0.0-0.7); Absolute Lymphocyte Count 2.38 10^3/uL (1.2-3.4); Absolute Monocyte Count 0.64 10^3/uL (0.1-0.8); Absolute Neutrophil Count 4.82 10^3/uL (1.2-6.7); Basophils % 1.1; Eosinophils % 2.7; HCT 35.4 % (36.0-46.0); HGB 11.4 g/dL (11.2-15.7); Immature Grans % 0.6; MCH 27.2 pg (27.0-33.0); MCHC 32.2 % (32.0-36.0); MCV 84.5 fL (80-95); MPV 9.3 fL (8.0-11.0); Monocytes % 7.8; Neutrophils % 58.8; Nucleated RBC 0 %; Platelet Count 316 10^3/uL (130-400); RBC 4.19 10^6/uL (3.93-5.22); RDW 13.9 % (11.7-14.6); RDW-SD 42.6 fL
[2020-11-08 21:18] LABS: *AMPHETAMINES SCREEN URINE Negative (Negative); *BARBITURATES SCREEN URINE Negative (Negative); *BENZODIAZEPINES SCREEN URINE Negative (Negative); Cannabinoids THC Negative (Negative); Cocaine Screen,Urine Negative (Negative); METHADONE URINE SCREEN Negative (Negative); OPIATES URINE SCREEN Negative (Negative)
[2020-11-08 21:24] LABS: Tricyclic Antidepressants Negative (Negative)
[2020-11-08 21:57] LABS: TSH (W/Ref FT4) 1.14 uIU/mL (0.36-3.74)
[2020-11-09 14:28] LABS: Chlamydia Result Negative (Negative); GC Result Negative (Negative)
[2020-11-10 11:02] LABS: Hepatitis B Surface Ag Negative (Negative)
[2020-11-10 11:18] LABS: Varicella IgG Antibody Positive (See Note)
[2020-11-10 11:22] LABS: Rubella IgG Ab (UVM) Positive (See Note)
[2020-11-10 11:26] LABS: Hepatitis C Ab w Rflx HCV PCR Negative (Negative)
[2020-11-10 11:44] LABS: HIV-1/2 Ag & Ab Screen Negative (Negative)
[2020-11-10 13:15] LABS: Syphilis Total Ab w/Reflex Nonreactive (Nonreactive)
[2020-11-15 17:13] LABS: Specimen WB Whole Blood
[2020-11-18 13:12] LABS: Result Summary NEGATIVE; Specimen WB Whole Blood
== END 2020-11-08 04:25 | disposition home or self-care (01) ==
LOC: LBO 04:24
PROVIDERS: PCP Nurse Practitioner Family; Visit Provider Advanced Practice Midwife
DX: Z34.91 Encounter for supervision of normal pregnancy, unspecified, first trimester (principal); Z11.4 Encounter for screening for human immunodeficiency virus [HIV]; Z11.59 Encounter for screening for other viral diseases; Z01.84 Encounter for antibody response examination; Z36.89 Encounter for other specified antenatal screening; Z11.3 Encounter for screening for infections with a predominantly sexual mode of transmission
CPT/HCPCS: 36415; 80307; 81329; 86787; 86803; 86850; 86900; 86901; 87340; 87389; 87491; 87591; 81220; 84443; 85025; 86762; 86780

== ENCOUNTER 2021-03-09 02:46 | Outpatient (CLI) | payer MEDICAID, SELFPAY ==
[2021-03-09 08:10] LABS: Abs Immature Grans 0.28 10^3/uL (0.0-0.06); Absolute Basophil Count 0.04 10^3/uL (0.0-0.2); Absolute Eosinophil Count 0.16 10^3/uL (0.0-0.7); Absolute Monocyte Count 0.61 10^3/uL (0.1-0.8); Absolute Neutrophil Count 5.61 10^3/uL (1.2-6.7); Basophils % 0.5; HCT 29.7 % (36.0-46.0); HGB 9.6 g/dL (11.2-15.7); Immature Grans % 3.5; Lymphocytes % 17.3; MCH 26.8 pg (27.0-33.0); MCHC 32.3 % (32.0-36.0); MPV 8.8 fL (8.0-11.0); Monocytes % 7.5; Neutrophils % 69.2; Nucleated RBC 0 %; Platelet Count 289 10^3/uL (130-400); RBC 3.58 10^6/uL (3.93-5.22); RDW 15.2 % (11.7-14.6)
[2021-03-10 12:20] LABS: TSH 2.93 uIU/mL (0.36-3.74)
== END 2021-03-09 02:47 | disposition home or self-care (01) ==
PROVIDERS: Internal Medicine; PCP Nurse Practitioner Family; Visit Provider Nurse Practitioner Women's Health
DX: E03.9 Hypothyroidism, unspecified (principal); Z34.82 Encounter for supervision of other normal pregnancy, second trimester
CPT/HCPCS: 36415; 82950; 84443; 85025

== ENCOUNTER 2021-04-06 10:22 | Outpatient (REF) | payer MEDICAID, SELFPAY ==
[2021-04-06 11:11] LABS: Abs Immature Grans 0.32 10^3/uL (0.0-0.06); Absolute Basophil Count 0.06 10^3/uL (0.0-0.2); Absolute Eosinophil Count 0.11 10^3/uL (0.0-0.7); Absolute Lymphocyte Count 1.41 10^3/uL (1.2-3.4); Absolute Monocyte Count 0.62 10^3/uL (0.1-0.8); Absolute Neutrophil Count 5.57 10^3/uL (1.2-6.7); Basophils % 0.7; Eosinophils % 1.4; HCT 34.5 % (36.0-46.0); HGB 10.8 g/dL (11.2-15.7); Lymphocytes % 17.4; MCH 26.7 pg (27.0-33.0); MCHC 31.3 % (32.0-36.0); MCV 85.4 fL (80-95); MPV 9.5 fL (8.0-11.0); Monocytes % 7.7; Neutrophils % 68.8; Nucleated RBC 0 %; Platelet Count 332 10^3/uL (130-400); RBC 4.04 10^6/uL (3.93-5.22); RDW-SD 51.4 fL; WBC 8.09 10^3/uL (4.4-10.8)
[2021-04-06 11:43] LABS: Ferritin 9 ng/mL (8-252)
[2021-04-11 14:18] LABS: Total Bile Acids 4.45 nmol/mL (<=19.00); Total Cholic acid 0.87 nmol/mL (<=5.00); Total Deoxycholic acid 2.41 nmol/mL (<=6.00); Total Ursodeoxycholic acid 0.37 nmol/mL (<=2.00)
== END 2021-04-06 10:23 | disposition home or self-care (01) ==
LOC: LBO 10:22
PROVIDERS: PCP Nurse Practitioner Family; Visit Provider Obstetrics & Gynecology
DX: D50.8 Other iron deficiency anemias (principal); L29.9 Pruritus, unspecified
CPT/HCPCS: 36415; 82728; 83789; 85025

== ENCOUNTER 2021-08-05 03:05 | Outpatient (CLI) | payer MEDICAID, SELFPAY ==
[2021-08-05 13:18] LABS: Abs Immature Grans 0.03 10^3/uL (0.0-0.06); Absolute Basophil Count 0.09 10^3/uL (0.0-0.2); Absolute Eosinophil Count 0.18 10^3/uL (0.0-0.7); Absolute Lymphocyte Count 1.11 10^3/uL (1.2-3.4); Absolute Monocyte Count 0.42 10^3/uL (0.1-0.8); Absolute Neutrophil Count 3.51 10^3/uL (1.2-6.7); Basophils % 1.7; Eosinophils % 3.4; HCT 33.1 % (36.0-46.0); Immature Grans % 0.6; Lymphocytes % 20.8; MCH 24.6 pg (27.0-33.0); MCHC 30.2 % (32.0-36.0); MCV 81.5 fL (80-95); MPV 9.3 fL (8.0-11.0); Monocytes % 7.9; Neutrophils % 65.6; Nucleated RBC 0 %; Platelet Count 349 10^3/uL (130-400); RBC 4.06 10^6/uL (3.93-5.22); RDW 15.1 % (11.7-14.6); RDW-SD 44.8 fL; WBC 5.34 10^3/uL (4.4-10.8)
[2021-08-05 14:03] LABS: Bilirubin Negative (Negative); Blood Negative (Negative); Clarity Sl Cloudy (Clear); Glucose Negative (Negative); Ketones Negative (Negative); Leukocyte Esterase Negative (Negative); Nitrite Negative (Negative); Specific Gravity >= 1.030 (1.005-1.025); Urobilinogen 0.2 EU/dL (Up TO 0.2); pH 6.5 (5-8)
[2021-08-05 14:34] LABS: ALT 20 U/L (14-59); AST 24 U/L (15-37); Albumin 3.7 g/dL (3.4-5.0); Alkaline Phosphatase 69 U/L (46-116); BUN 20 mg/dL (7-18); Bilirubin, Total 0.4 mg/dL (0.2-1.0); CREATININE 0.9 mg/dL (0.55-1.02); Calcium 8.7 mg/dL (8.5-10.1); Chloride 107 mmol/L (98-107); Glucose 83 mg/dL (74-106); Potassium 4.4 mmol/L (3.5-5.1); Sodium 143 mmol/L (136-145); Total Protein 6.4 g/dL (6.4-8.2)
[2021-08-05 14:39] LABS: FREE T4 0.85 ng/dL (0.76-1.46); TSH 1.23 uIU/mL (0.36-3.74)
[2021-08-05 22:20] LABS: T3, Total 121 ng/dL (97-169)
[2021-08-08 10:21] LABS: Hepatitis B Surface Ab Positive (See Note); Hepatitis B Surface Ag Negative (Negative)
[2021-08-08 11:02] LABS: IgA 88 mg/dL (85-499); IgG 673 mg/dL (610-1,616); IgM 78 mg/dL (35-242)
[2021-08-08 11:08] LABS: Hep B Core Antibody Negative (Negative)
== END 2021-08-05 03:06 | disposition home or self-care (01) ==
LOC: LBO 03:06
PROVIDERS: Psychiatry & Neurology Neurology; PCP Nurse Practitioner Family; Visit Provider Internal Medicine
DX: G35 Multiple sclerosis (principal); E03.9 Hypothyroidism, unspecified
CPT/HCPCS: 36415; 80053; 82784; 86704; 86706; 87340; 81003; 84439; 84443; 84480; 85025

== ENCOUNTER 2021-09-06 15:56 | Outpatient (REF) | payer MEDICAID, SELFPAY ==
[2021-09-06 15:07] LABS: Abs Immature Grans 0.02 10^3/uL (0.0-0.06); Absolute Basophil Count 0.06 10^3/uL (0.0-0.2); Absolute Eosinophil Count 0.17 10^3/uL (0.0-0.7); Absolute Lymphocyte Count 1.27 10^3/uL (1.2-3.4); Absolute Monocyte Count 0.41 10^3/uL (0.1-0.8); Absolute Neutrophil Count 3.09 10^3/uL (1.2-6.7); Basophils % 1.2; Eosinophils % 3.4; HCT 31.4 % (36.0-46.0); HGB 9.5 g/dL (11.2-15.7); Immature Grans % 0.4; Lymphocytes % 25.3; MCH 23.9 pg (27.0-33.0); MCHC 30.3 % (32.0-36.0); MCV 79.1 fL (80-95); Monocytes % 8.2; Neutrophils % 61.5; Nucleated RBC 0 %; Platelet Count 390 10^3/uL (130-400); RBC 3.97 10^6/uL (3.93-5.22); RDW 14.6 % (11.7-14.6); RDW-SD 42.3 fL; WBC 5.02 10^3/uL (4.4-10.8)
[2021-09-06 15:11] LABS: ESR 1 mm/hr (0-20)
[2021-09-06 15:51] LABS: ALT 17 U/L (14-59); AST 22 U/L (15-37); Albumin 3.8 g/dL (3.4-5.0); Alkaline Phosphatase 69 U/L (46-116); Anion Gap 8.2 mmol/L (3-11); BUN 18 mg/dL (7-18); Bilirubin, Total 0.4 mg/dL (0.2-1.0); C-Reactive Protein 0.09 mg/dL (0.0-0.3); CO2 27.8 mmol/L (21.0-32.0); CREATININE 0.8 mg/dL (0.55-1.02); Calcium 8.3 mg/dL (8.5-10.1); Chloride 105 mmol/L (98-107); Creatine Kinase 71 U/L (26-192); Glucose 74 mg/dL (74-106); Potassium 4.1 mmol/L (3.5-5.1); Sodium 141 mmol/L (136-145); TSH (W/Ref FT4) 3.23 uIU/mL (0.36-3.74); Total Protein 6.4 g/dL (6.4-8.2)
[2021-09-06 22:17] LABS: Rheumatoid Factor <8.6 IU/mL (<12.0)
[2021-09-07 12:50] LABS: Lyme Ab w Rflx to Lyme Confirm Negative (Negative)
[2021-09-07 14:51] LABS: ANA Interpretation Positive (Negative); ANA Titer Pattern 1:80 Homogeneous
[2021-09-08 00:49] LABS: Vitamin D 25 Total 16.8 ng/mL (30-100)
[2021-09-08 19:23] LABS: Anaplasma phagocytophilum Negative (Negative); B. miyamotoi PCR Negative (Negative); Babesia divergens/MO-1 Negative (Negative); Babesia duncani Negative (Negative); Babesia microti Negative (Negative); Ehrlichia chaffeensis Negative (Negative); Ehrlichia ewingii/canis Negative (Negative); Ehrlichia muris eauclairensis Negative (Negative)
== END 2021-09-06 15:57 | disposition home or self-care (01) ==
LOC: LBN 15:56
PROVIDERS: PCP Nurse Practitioner Family; Visit Provider Nurse Practitioner Family
DX: G35 Multiple sclerosis (principal); M25.59 Pain in other specified joint
CPT/HCPCS: 80053; 82306; 82550; 85652; 87798; 84443; 85025; 86038; 86140; 86431; 86618

== ENCOUNTER 2021-11-21 17:50 | Outpatient (REF) | payer OTHER, MEDICAID, SELFPAY ==
[2021-11-21 20:26] LABS: HCT 32.9 % (36.0-46.0); HGB 9.9 g/dL (11.2-15.7); MCH 23.3 pg (27.0-33.0); MCHC 30.1 % (32.0-36.0); MCV 77.6 fL (80-95); Platelet Count 401 10^3/uL (130-400); RBC 4.24 10^6/uL (3.93-5.22); RDW 17.8 % (11.7-14.6); RDW-SD 49.1 fL; Reticulocyte 1.4 % (0.5-2.4); WBC 6.37 10^3/uL (4.4-10.8)
[2021-11-21 20:36] LABS: Ferritin 5 ng/mL (8-252); TSH 1.79 uIU/mL (0.36-3.74)
[2021-11-21 21:00] LABS: Iron 15 ug/dL (50-170); Total Iron Binding Capacity 381 ug/dL (250-450); Transferrin Sat 4 % (15-50)
== END 2021-11-21 17:51 | disposition home or self-care (01) ==
LOC: NCHCN 17:50
PROVIDERS: PCP Nurse Practitioner Family; Visit Provider Physician Assistant
DX: D64.9 Anemia, unspecified (principal); E03.9 Hypothyroidism, unspecified
CPT/HCPCS: 85027; 82728; 83540; 83550; 84443; 85045

== ENCOUNTER 2022-01-20 02:20 | Outpatient (CLI) | payer OTHER, MEDICAID, SELFPAY ==
[2022-01-20 08:52] LABS: Abs Immature Grans 0.03 10^3/uL (0.0-0.06); Absolute Basophil Count 0.03 10^3/uL (0.0-0.2); Absolute Lymphocyte Count 0.83 10^3/uL (1.2-3.4); Absolute Monocyte Count 0.35 10^3/uL (0.1-0.8); Absolute Neutrophil Count 2.47 10^3/uL (1.2-6.7); Basophils % 0.8; Eosinophils % 2.6; HCT 34.9 % (36.0-46.0); HGB 10.5 g/dL (11.2-15.7); Immature Grans % 0.8; Lymphocytes % 21.8; MCH 23.5 pg (27.0-33.0); MCHC 30.1 % (32.0-36.0); MCV 78 fL (80-95); MPV 8.7 fL (8.0-11.0); Monocytes % 9.2; Neutrophils % 64.8; Platelet Count 344 10^3/uL (130-400); RBC 4.46 10^6/uL (3.93-5.22); RDW 15.4 % (11.7-14.6); WBC 3.81 10^3/uL (4.4-10.8)
[2022-01-20 08:53] LABS: Bilirubin Negative (Negative); Blood Moderate (Negative); Clarity Clear (Clear); Glucose Negative (Negative); Ketones Negative (Negative); Leukocyte Esterase Negative (Negative); Nitrite Negative (Negative); Specific Gravity 1.025 (1.005-1.025); Urobilinogen 0.2 EU/dL (Up TO 0.2)
[2022-01-20 09:07] LABS: Bacteria Negative HPF (Negative); Casts Negative LPF (Negative); Crystals Negative HPF (Negative); Epithelial Cells Few HPF (Negative); Mucus Trace (Negative)
[2022-01-20 09:07] LABS: PTT Activated 25.4 sec (21.0-27.5); Prothrombin Time 10.2 sec (9.3-11.0)
[2022-01-20 09:08] LABS: C & S Indicated? No
[2022-01-20 10:07] LABS: ALT 11 U/L (14-59); AST 13 U/L (15-37); Albumin 3.6 g/dL (3.4-5.0); Alkaline Phosphatase 82 U/L (46-116); Anion Gap 9.8 mmol/L (3-11); BUN 17 mg/dL (7-18); Bilirubin, Total 0.4 mg/dL (0.2-1.0); CO2 26.2 mmol/L (21.0-32.0); CREATININE 0.8 mg/dL (0.55-1.02); Calcium 8.6 mg/dL (8.5-10.1); Chloride 108 mmol/L (98-107); Glucose 80 mg/dL (74-106); Iron 20 ug/dL (50-170); Potassium 4.6 mmol/L (3.5-5.1); Sodium 144 mmol/L (136-145); Total Iron Binding Capacity 372 ug/dL (250-450); Total Protein 6.4 g/dL (6.4-8.2); Transferrin Sat 5 % (15-50)
[2022-01-20 10:16] LABS: Ferritin 5 ng/mL (8-252)
[2022-01-20 10:33] LABS: Calculated LDL 91 mg/dL (<100); Cholesterol 176 mg/dL (<200); HDL Cholesterol 69 mg/dL (40-60); Triglyceride 83 mg/dL (<150); Vitamin B12 343 pg/mL (193-986)
[2022-01-20 10:50] LABS: PHOSPHORUS 3.2 mg/dL (2.6-4.7)
[2022-01-23 09:41] LABS: HBs Antibody, Quant 462.2 mIU/mL (See Note); Hepatitis B Surface Ab Positive (See Note)
[2022-01-23 09:49] LABS: Hepatitis B Surface Ag Negative (Negative)
[2022-01-23 10:11] LABS: Parathyroid Hormone,Intact 70 pg/mL (19-88)
[2022-01-23 10:37] LABS: IgA 98 mg/dL (85-499); IgG 709 mg/dL (610-1,616); IgM 87 mg/dL (35-242)
[2022-01-23 10:44] LABS: Hep B Core Antibody Negative (Negative)
[2022-01-23 11:35] LABS: Zinc, Serum 0.68 mcg/mL (0.66-1.10)
[2022-01-23 23:35] LABS: Copper, Serum 1.26 mcg/mL (0.75-1.45)
[2022-01-24 22:58] LABS: Thiamine (Vitamin B1), WB 108 nmol/L (70-180)
== END 2022-01-20 02:21 | disposition home or self-care (01) ==
LOC: LBO 02:21
PROVIDERS: Psychiatry & Neurology Neurology; PCP Nurse Practitioner Family; Visit Provider Physician Assistant
DX: D64.9 Anemia, unspecified (principal); E61.1 Iron deficiency; E55.9 Vitamin D deficiency, unspecified; K91.2 Postsurgical malabsorption, not elsewhere classified; E66.9 Obesity, unspecified; E28.2 Polycystic ovarian syndrome; G35 Multiple sclerosis; R23.8 Other skin changes
CPT/HCPCS: 36415; 80053; 80061; 82784; 85027; 86704; 86706; 87340; 81003; 81015; 82525; 82607; 82728; 83540; 83550; 83735; 83970; 84100; 84425; 84630; 85025; 85610; 85730

== ENCOUNTER 2022-02-15 02:07 | Outpatient (CLI) | payer OTHER, MEDICAID, SELFPAY ==
[2022-02-15 10:18] LABS: Source Nasal/Nares
[2022-02-15 13:06] LABS: COVID-19 PCR Negative (Negative)
== END 2022-02-15 02:08 | disposition home or self-care (01) ==
PROVIDERS: PCP Physician Assistant; Visit Provider Surgery
DX: Z20.822 Contact with and (suspected) exposure to COVID-19 (principal); Z01.818 Encounter for other preprocedural examination
CPT/HCPCS: 87635

== ENCOUNTER 2022-02-17 10:57 | Day surgery (SDC) | payer OTHER, MEDICAID, SELFPAY ==
--- NOTE | 2022-02-16 23:48 | W.COLOREPORT ---
Colonoscopy Report Date of procedure: 02/17/22 Pre-op diagnosis general: anemia Post-op diagnosis procedure note: other Surgeon: Luana River Anesthesia Type: General:No Airway Disposition: same day Prep: Miralax/Dulcolax Retraction Time: 9 Procedure Description: After informed consent was obtained the patient was taken to the procedure room and placed in a left decubitous position. Monitors were applied and a time out was done. The patients name, date of , procedure, allergies to medications and metal in their body was reviewed. The patient was then sedated. Once sedated and comfortable a rectal exam was done. External exam minimal external hemorrhoids. Internal exam revealed a normal sphincter tone and no palpable masses. The scope was then introduced and retrofelexed. no internal hemorrhoids were identified. The scope was then advanced to the cecum without difficulty. The TI and appendiceal orifice were identified. he scope was then slowly retracted over 9 minutes back into the rectum. There are no AVMs, polyps, diverticula visualized today. The prep was a BB PS 1 in all ruiz. It was lavaged with 2 L of saline today. Polyps less than 5 mm may have been missed. The scope was removed and the patient was woken up and taken back to Same day surgery in stable condition. The patient tolerated the procedure well and there were no immediate complications. Follow up: The patient should follow up in 10 years unless they develop changes in bowel habits or other new gastrointestinal complaints.
--- NOTE | 2022-02-16 23:49 | ENDO_ITS ---
Date of service: 02/17/22 Time of Service: 14:40 Endoscopy Report DATE OF PROCEDURE: 02/17/22 PRE-OP DIAGNOSIS: anemia POST-OP DIAGNOSIS: other (Gastritis) SURGEON: Luana River ANESTHESIA TYPE: General:No Airway ESTIMATED BLOOD LOSS: 1 PATHOLOGY: other COMPLICATIONS: None DISPOSITION: same day PROCEDURE DESCRIPTION: After informed consent was obtained the patient was take to the procedure room and placed in a supine position. Monitors were applied and a time out was done. The patients name, date of , procedure type, allergies to medications and metal in their body was reviewed. A bite block was placed and the patient was sedated. Once sedated and comfortable the gastroscope was advanced through the oropharynx which was grossly normal into the esophagus. The proximal and mid- esophagus were normal.. In the distal esophagus there is no erosions, varices, diverticula, stricture noted today. She has had a previous sleeve gastrectomy. I am able to maneuver the scope through the sleeve. And I can see down to the pylorus. But I am unable to maneuver the scope through the pylorus and into the duodenum. There is no signs of active or old bleeding. There are no ulcerations or polyps. She does have a moderate gastritis in a striped fashion radiating from the antrum. Biopsies are taken of the proximal and distal portions of the sleeve. Because of the previous sleeve gastrectomy, I am unable to do a retroflexion with the scope. There is no hiatal hernia noted. The scope was retracted back into the esophagus and biopsies were done of the GE junction to rule out Blake's. The Z line was regular. The GE junction was at 38 cm in the distal esophagus at 36 cm. Biopsies are taken of this area. The scope was removed and the patient was woken up and taken back to [facility] in stable condition. Follow up: 2-3 wks
--- NOTE | 2022-02-16 23:50 | PDOC.DSDIS_ITS ---
Discharge Plan Disposition Patient Disposition: HOME Condition: Good Discharge Details Reason For Visit: endo & colon scopes Attending Provider: Luana River Primary Care Provider: Jhoan Knox Home Meds and New Rx's Prescriptions: New pantoprazole [Protonix] 40 mg tablet,delayed release (DR/EC) 40 mg PO DAILY Qty: 90 4RF Continued ergocalciferol (vitamin D2) 50,000 unit capsule 50,000 unit PO QWEEK Qty: 12 3RF levothyroxine 88 mcg capsule 88 mcg PO DAILY oxcarbazepine 150 mg tablet 150 mg PO BID PRN doxycycline hyclate 100 mg capsule 100 mg PO BID PRN bupropion HCl 150 mg tablet extended release 24 hr 150 mg PO QAM Vyvanse 20 mg capsule 20 mg PO DAILY ferrous sulfate 325 mg (65 mg iron) tablet 325 mg PO DAILY naltrexone 50 mg tablet 25 mg PO BID valacyclovir 500 mg tablet 500 mg PO Q12H Qty: 60 3RF Rx Instructions: 500 mg PO q12h x 5 days then q daily thereafter for suppression. melatonin 3 mg capsule 6 mg PO HS PRN escitalopram oxalate 20 mg tablet 20 mg PO DAILY Finacea 15 % foam 1 applic topical BID Discontinued bisacodyl [Dulcolax (bisacodyl)] 5 mg tablet,delayed release (DR/EC) 5 mg PO ONCE Qty: 4 0RF polyethylene glycol 3350 17 gram/dose powder 238 g PO ONCE Qty: 238 0RF Rx Instructions: Colonoscopy Bowel Prep- Per Instructions Discharge Instructions Additional Instructions: Findings:mild gastritis normal colon Follow up:2-3 wks w/ Dr. River to review path and repeat labs Please call if you develop: fevers >101.5 Nausea or Vomiting Abdominal pain that is not transient DAY SURGERY UNIT POST COLONOSCOPY INSTRUCTIONS 1. Because there will be medication in your system for the next 24 hours, you m ay feel a little sleepy. Your coordination will be affected. Therefore: a. Do not drive or operate dangerous equipment for 24 hours. b. Do not drink alcohol beverages for 24 hours (not even beer). c. Plan to go home and rest for the day. 2. Generally there are no restrictions on your activity after a day or so has gone by, but you may feel a bit fatigued for a few days. 3 After you arrive home you may have a light meal and return to a normal diet as you can tolerate it without feeling sick to your stomach. 4. After surgery, you may feel pain or discomfort. This should be only transient, but if it persists please contact your doctor. 5. If there are any questions regarding the findings of your procedure, please feel free to contact your doctor. 6. If you are unable to contact your doctor with a problem, contact the hospital at [phone]. 7. Continue all your regular medications unless directed otherwise. I understand the above instructions and have no questions. Signature of Patient or Responsible Adult Escort Date/Time Name of Responsible Adult Escort Signature of Nurse Date/Time Activity:: see above Diet:: see above Discharge Orders Discharge Orders: Discharge Order (Routine); Ordered 02/16/22 Ordered By: Luana River
[2022-02-17 11:04] VITALS: BP 124/78; PULSE 77; RESP 16; TEMP 36.9; O2SAT 98
[2022-02-17] MEDS: Lactated Ringers 1,000 ML 80 ML IV (11:44)
--- NOTE | 2022-02-17 11:47 | W.ANESPRE ---
General Info Date of Service Date Performed: 02/17/22 Height: 5 ft 6 in Weight: 114.9 kg Body Mass Index (BMI): 40.8 Surgical Procedure: Operation Date: 02/17/22 11:20 Proposed Procedure Side Surgeon p Colonoscopy/Gastroscopy w/Biopsies Luana River, Meds Allergies and Home Medications Allergies Allergy/AdvReac Type Severity Reaction Status Date / Time Penicillins Allergy Anaphylaxis Verified 02/17/22 11:36 DERMABOND GLUE Allergy Severe Hives Uncoded 02/17/22 11:24 Home Medication Medication Instructions Recorded ergocalciferol (vitamin D2) 1,250 50,000 unit PO QWEEK #12 caps 05/08/19 mcg (50,000 unit) capsule valacyclovir 500 mg tablet 500 mg PO Q12H HSV #60 tabs 02/12/20 levothyroxine 88 mcg capsule 88 mcg PO DAILY 09/29/20 azelaic acid 15 % topical foam 1 applic topical BID 09/26/21 (Finacea) escitalopram oxalate 20 mg tablet 20 mg PO DAILY 09/26/21 melatonin 3 mg capsule 6 mg PO HS PRN 09/26/21 doxycycline hyclate 100 mg capsule 100 mg PO BID PRN 02/09/22 oxcarbazepine 150 mg tablet 150 mg PO BID PRN 02/09/22 bupropion HCl 150 mg 24 hr tablet, 150 mg PO QAM 02/10/22 extended release ferrous sulfate 325 mg (65 mg 325 mg PO DAILY 02/10/22 iron) tablet lisdexamfetamine 20 mg capsule 20 mg PO DAILY 02/10/22 (Vyvanse) naltrexone 50 mg tablet 25 mg PO BID Weight Loss 02/13/22 bisacodyl 5 mg tablet,delayed 5 mg PO ONCE Colonoscopy Bowel 02/15/22 release (Dulcolax (bisacodyl)) PRep #4 tabs polyethylene glycol 3350 17 238 g PO ONCE Colonoscopy Bowel 02/15/22 gram/dose oral powder Prep #238 grams Current Visit Medications: Current Medications Generic Name Dose Route Start Last Admin Trade Name Freq PRN Reason Stop Dose Admin Hyoscyamine Sulfate 0.125 mg 02/16/22 23:44 Hyoscyamine 0.125 Mg Sl/Oral/Chew SL DIRECTED PRN Ringer's Solution 1,000 mls @ 80 mls/hr 02/17/22 06:00 02/17/22 11:44 IV 03/18/22 23:59 80 mls/hr INFUSION SUDEEP Administration Iron Sucrose 200 mg/ Sodium 110 mls @ 400 mls/hr 02/17/22 11:47 Chloride IVPB 02/17/22 12:03 TODAY ONE IV Miscellaneous Supplies 1 each 02/17/22 06:00 Iv Access IV 03/18/22 23:59 DIRECTED SUDEEP Ondansetron HCl 4 mg 02/16/22 23:44 Ondansetron 4 Mg/2 Ml Vial IVP Q4H PRN PRN Nausea / Vomiting Sodium Chloride 0 ml 02/17/22 06:00 Normal Saline Flush 10 Ml Syr IV 03/18/22 23:59 PRN PRN Sodium Chloride 0 ml 02/17/22 06:00 Normal Saline 10 Ml Vial IJ 03/18/22 23:59 DIRECTED PRN Sterile Water 0 ml 02/17/22 06:00 Water,Injection,Sterile 10 Ml Vial IJ 03/18/22 23:59 DIRECTED PRN PFSH Active Problems Active Problems: Problem Status Onset Code Obesity (BMI 30-39.9) E66.9 Multiple sclerosis G35 Anemia D64.9 Medical History Medical History 12 weeks gestation of Acne rosacea 09/17/20. Pt discontinued Doxycycline with + UPT. Rx with topical metrogel 1%/day. ADD (attention deficit disorder) Encounter for laboratory testing for COVID-19 virus Encounter for screening for other viral diseases History of ITP Hoarseness Low back pain Mood disorder Anxiety and Depression Papillary carcinoma of thyroid PTSD (post-traumatic stress disorder) Pt. denies any triggers while under anesthesia Rh negative state in antepartum period Thyroid mass Thyroid nodule Trigeminal neuralgia Vertigo Vocal cord paralysis, unilateral complete Medical History Comments:: Pt. states her mother has an extremley hard time waking from anesthesia. Pt states her heart rate WILL drop into the 40-50's during anesthesia. Surgical History Surgical History Bariatric surgery status s/p gastric sleeve H/O arthroscopic knee surgery H/O partial thyroidectomy History of tonsillectomy History of tonsillectomy and adenoidectomy Hx of arthroscopy of left knee Hx of cholecystectomy Hx of LASIK Hx of thyroidectomy angela Tobacco Smoking/Tobacco Use Status: Former Tobacco Use Alcohol Alcohol Intake: current Alcohol intake frequency: a few times a week Alcohol type: beer and wine Substance Use Substance use: Occasionally Substance use type: marijuana Details: smokes, last used last week. Prental History History 3 Para 1 Hx # Term Pregnancies 1 Multiple births 0 Hx # Pregnancies 0 Ectopic pregnancies 0 AB induced 0 Hx Number of Living Children 1 AB spontaneous 1 Past Pregnancies Del. Date GA/Weeks # Outcome Route Wgt Sex Labor Lgth Anesthesia Location Prov Complic 07/13/15 41 No Successful vaginal 3373.593 g Male 12 hrs once active [facility] 12/04/20 13 Delivery Date: 07/13/15 Last Updated by: Kristy Wilson IOL for postdates: miso x3, nml though baby was a bit blue at first [place] Delivery Date: 12/04/20 Last Updated by: Yanci Giraldo LPN Patient transferred care to [facility] Vital Signs and Lab Results Vital Signs Most Recent Vital Signs in EMR: Most Recent Vital Signs Temp Pulse Resp BP Pulse Ox 36.9 C 77 16 124/78 98 02/17/22 11:04 02/17/22 11:04 02/17/22 11:04 02/17/22 11:04 02/17/22 11:04 Lab Results Blood Type / Crossmatch: No Data to Display Complete Blood Count: White Blood Count 3.81 10^3/uL (4.4-10.8) L 01/20/22 08:47 Red Blood Count 4.46 10^6/uL (3.93-5.22) 01/20/22 08:47 Hemoglobin 10.5 g/dL (11.2-15.7) L 01/20/22 08:47 Hematocrit 34.9 % (36.0-46.0) L 01/20/22 08:47 Platelet Count 344 10^3/uL (130-400) 01/20/22 08:47 Complete Metabolic Panel: Sodium Level 144 mmol/L (136-145) 01/20/22 08:47 Potassium Level 4.6 mmol/L (3.5-5.1) 01/20/22 08:47 Chloride Level 108 mmol/L (98-107) H 01/20/22 08:47 Carbon Dioxide Level 26.2 mmol/L (21.0-32.0) 01/20/22 08:47 Blood Urea Nitrogen 17 mg/dL (7-18) 01/20/22 08:47 Creatinine 0.8 mg/dL (0.55-1.02) 01/20/22 08:47 Estimated GFR/1.73 m2 >= 60.00 (mL/min/1.73m2) 01/20/22 08:47 Magnesium Level 2.0 mg/dL (1.8-2.4) 01/20/22 08:47 Calcium Level 8.6 mg/dL (8.5-10.1) 01/20/22 08:47 Albumin 3.6 g/dL (3.4-5.0) 01/20/22 08:47 Glucose Level 80 mg/dL (74-106) 01/20/22 08:47 Liver Function Panel: Alanine Aminotransferase (ALT/SGPT) 11 U/L (14-59) L 01/20/22 08:47 Aspartate Amino Transf (AST/SGOT) 13 U/L (15-37) L 01/20/22 08:47 Coagulation Panel: INR International Normalized Ratio 1.0 (0.9-1.1) 01/20/22 08:47 Prothrombin Time 10.2 sec (9.3-11.0) 01/20/22 08:47 Activated Partial Thromboplast Time 25.4 sec (21.0-27.5) 01/20/22 08:47 Cardiac Panel: No Data to Display Arterial Blood Gas: No Data to Display Venous Blood Gas: No Data to Display Pancreas Panel: No Data to Display Thyroid Panel: No Data to Display Infectious Disease: Coronavirus (COVID-19)(PCR) Negative (Negative) 02/15/22 08:05 Coronavirus 2019 Source Nasal/Nares 02/15/22 08:05 Hepatitis B Surface Antigen Negative (Negative) 01/20/22 08:47 Blood Cultures: No Data to Display Toxicology Panel: No Data to Display Panel: No Data to Display Anesthesia Assessment and Plan Anesthesia History Personal History: No History of Anesthesia Complications Family History: Other Exercise Tolerance Exercise Tolerance: Metabolic Equivalents>4 Pertinent Negatives Pertinent Negatives: No Symptoms of GERD Cardiac & Pulmonary Exam Cardiac Exam: Normal S1/S2 Heart Sounds Pulmonary Exam: Clear Bilateral Breath Sounds Implantable Cardiac Device Does patient have a Pacemaker or an ICD?: No Airway Exam Known Difficult Airway: No Mallampati Class: 1 Mouth Opening: Normal (> 3cm) Thyromental Distance: Greater than 3 cm Neck Range of Motion: Full ROM Neck Circumference: Normal Teeth Condition: Normal Dentition ASA Classification ASA Score: ASA 3 Emergency Case?: No NPO Status NPO Status: NPO Clears >2 hours, Solids >8 hours Status Status: Negative HCG Anesthesia Plan Resuscitation Status: Full Code Anesthesia Technique: General Anesthesia Airway Planned: Natural Airway Monitors Used: Standard Monitors
[2022-02-17 11:49] VITALS: BMI 40.8
--- NOTE | 2022-02-17 14:05 | STOM_PTH ---
PATIENT: Adriana Saxena LOC: [facility] U#:[id number] AGE/SX: 36/F ROOM: RE02/17/[address]: Luana River : 1985 BED: DIS: 02/17/2022 SPEC #: [id number] RECD: 02/17/22 15:23 STATUS: HEATHER REQ #: [id number] MILANA: 02/17/22 14:[address]: Luana River DEPT: Surgical Specimen RECD BY: Marlena Luque ENTERED: 02/17/22 15:25 SP TYPE: STOMACH OTHR DR: Jhoan Knox Tissues: 1 - STOMACH BIOPSY 2 - STOMACH BIOPSY 3 - ESOPHAGUS BIOPSY 4 - ESOPHAGUS BIOPSY 5 - BIOPSY BOWEL Procedures: GROSS AND MICRO LEVEL 4 IMMUNOPEROXIDASE STAIN Comments: [id number]
[2022-02-17 14:48] VITALS: BP 110/67; PULSE 56; RESP 17; TEMP 36.4; O2SAT 100
--- NOTE | 2022-02-17 14:57 | W.ANESPOSTOP ---
Postoperative Evaluation Date, Time and Location Date Performed: 02/17/22 Time Performed: 14:57 Patient Location: Day Surgery Unit Vital Signs Most Recent Imported Vital Signs: Most Recent Vital Signs Temp Pulse Resp BP Pulse Ox 36.4 C L 56 L 17 110/67 100 02/17/22 14:48 02/17/22 14:48 02/17/22 14:48 02/17/22 14:48 02/17/22 14:48 Pain Score Most Recent Pain Score: Most Recent Pain Score Pain Level 0 02/17/22 14:48 Assessment Mental Status: Awake (Alert & Oriented to Patient Baseline) Airway and Respiratory Function: Patent airway with normal (patient baseline) respiratory exam Cardiovascular Function: Hemodynamically Stable Hydration Status: Adequately Hydrated Nausea & Vomiting: No Nausea or Vomiting Pain: Pt. Denies Any Pain Peripheral Nerve Block: Patient did not receive a nerve block
[2022-02-17] MEDS: IRON SUCROSE COMPLEX 200 MG in Normal Saline 100 ML 400 MG IVPB (15:03)
[2022-02-17 15:15] VITALS: BP 110/69; PULSE 52; RESP 18; TEMP 36.3; O2SAT 100
== END 2022-02-17 15:55 | disposition home or self-care (01) ==
PROVIDERS: PCP Physician Assistant; Visit Provider Surgery
PROC: (CPT 43239; principal; 2022-02-17 11:15)
DX: D64.9 Anemia, unspecified (principal); K29.70 Gastritis, unspecified, without bleeding; Z98.84 Bariatric surgery status; K63.89 Other specified diseases of intestine; K31.89 Other diseases of stomach and duodenum; K22.89 Other specified disease of esophagus
CPT/HCPCS: 43239; 45378; 88305; 96365; 88361; J1756; J2704

== ENCOUNTER 2022-05-26 17:58 | Emergency (ER) | payer OTHER, MEDICAID, SELFPAY ==
[2022-05-26 18:04] VITALS: BP 134/81; PULSE 86; RESP 18; TEMP 36.8; O2SAT 99
--- NOTE | 2022-05-26 18:15 | DI.RAD_ITS ---
Exam(s) XR KNEE LT 4V+ EXAM: XR KNEE LT 4V+ CLINICAL HISTORY: fall/pain TECHNIQUE: COMPARISON: CR LEFT KNEE LIMITED 1 OR 2 VIEWS from 12/15/2015 FINDINGS: Four views were obtained. No gross knee joint effusion seen on the lateral view. No evidence of acu te fracture or dislocation. IMPRESSION: RADIATION DOSE DELIVERED: Total DLP
--- NOTE | 2022-05-26 18:53 | ED.GENADUL_ITS ---
Discharge Plan Disposition Patient Disposition: HOME Condition: Stable Discharge Details Clinical Impression: Knee pain, left Primary Care Provider: Jhoan Knox ED Provider: Jaya Chase Home Meds and New Rx's Prescriptions: Continued ergocalciferol (vitamin D2) 50,000 unit capsule 50,000 unit PO QWEEK Qty: 12 3RF levothyroxine 88 mcg capsule 88 mcg PO DAILY oxcarbazepine 150 mg tablet 150 mg PO BID PRN doxycycline hyclate 100 mg capsule 100 mg PO BID PRN bupropion HCl 150 mg tablet extended release 24 hr 150 mg PO QAM Vyvanse 20 mg capsule 20 mg PO DAILY ferrous sulfate 325 mg (65 mg iron) tablet 325 mg PO DAILY naltrexone 50 mg tablet 25 mg PO BID valacyclovir 500 mg tablet 500 mg PO Q12H Qty: 60 3RF Rx Instructions: 500 mg PO q12h x 5 days then q daily thereafter for suppression. melatonin 3 mg capsule 6 mg PO HS PRN escitalopram oxalate 20 mg tablet 20 mg PO DAILY Finacea 15 % foam 1 applic topical BID pantoprazole [Protonix] 40 mg tablet,delayed release (DR/EC) 40 mg PO DAILY Qty: 90 4RF Discharge Instructions Instructions: Knee Pain (ED) Additional Instructions: Wet read of your x-ray in the ER is unremarkable, official read pending, if positive you will be contacted personally by me. Rest, elevate, cool compresses every 2 hours for 20 minutes. [id number] medications such as Tylenol as directed for discomfort. Please watch for new or worsening symptoms and return to the ER for any concerns. If symptoms persist then I recommend following up with orthopedics in the next 7-10 days. Discharge Data Discharge Date/Time-TO BE ENTERED AT DEPARTURE: 05/26/22 19:03 Medical Decision Making 36-year-old female who had a mechanical fall this morning presents with ongoing left knee pain. She is ambulatory. Denies any distracting injuries. Will obtain x-ray of the knee Read in the ER by me of the x-rays unremarkable. Discussed findings with patient. She is relieved. Declines splint or crutches. Is comfortable discharge now. I will call with any discrepancies once the official read is completed. Standard discharge and return precautions were provided. Patient understands, is agreeable to this plan, and has no additional questions or concerns upon discharge. This documentation was generated using Dragon dictation system, please disregard any oddities of phrase or misspellings. Medical Records Medical records reviewed: Yes I reviewed the patient's medical records. Imaging Data Radiologic Study: Attestation: I personally reviewed and interpreted this imaging study as follows: Imaging: X-Ray Radiologist's impression: PROCEDURE INFORMATION: Exam: XR Left Knee Exam date and time: 05/26/2022 6:33 PM Age: 36 years old Clinical indication: Other: Fall/pain TECHNIQUE: Imaging protocol: Radiologic exam of the Left knee. Views: 4 or more views. COMPARISON: MRI L LOWER JOINT WO CONT 04/04/2017 3:18 PM FINDINGS: Bones/joints: No fracture or dislocation. No joint effusion. Soft tissues: Soft tissue swelling of the anterior knee region. No gas or foreign body. IMPRESSION: 1. Soft tissue swelling. 2. No fracture, dislocation, or joint effusion. HPI General Mode of arrival: ambulatory . Date/Time Provider Initiated Documentation: 05/26/22 18:01 . Limitations to Documentation: no limitations . Information obtained by: patient . History of Present Illness 36 year old F presents to the emergency department with the chief complaint of L kne pain, described as moderate, with intensity rated at 6. Quality is described as aching, and is localized to the left and lower extremity. Patient reports no radiation. Patient started experiencing this hour(s) (8) and it has been constant. Immobilization improves symptom(s), Movement worsens symptoms . Patient notes no other symptoms.. Patient did receive the following treatments prior to arrival, none Related Data Home Medications Medication Instructions Recorded Confirmed ergocalciferol (vitamin D2) 1,250 50,000 unit PO QWEEK #12 caps 05/08/19 05/26/22 mcg (50,000 unit) capsule valacyclovir 500 mg tablet 500 mg PO Q12H HSV #60 tabs 02/12/20 05/26/22 levothyroxine 88 mcg capsule 88 mcg PO DAILY 09/29/20 05/26/22 azelaic acid 15 % topical foam 1 applic topical BID 09/26/21 05/26/22 (Finacea) escitalopram oxalate 20 mg tablet 20 mg PO DAILY 09/26/21 05/26/22 melatonin 3 mg capsule 6 mg PO HS PRN 09/26/21 05/26/22 doxycycline hyclate 100 mg capsule 100 mg PO BID PRN 02/09/22 05/26/22 oxcarbazepine 150 mg tablet 150 mg PO BID PRN 02/09/22 05/26/22 bupropion HCl 150 mg 24 hr tablet, 150 mg PO QAM 02/10/22 05/26/22 extended release ferrous sulfate 325 mg (65 mg 325 mg PO DAILY 02/10/22 05/26/22 iron) tablet lisdexamfetamine 20 mg capsule 20 mg PO DAILY 02/10/22 05/26/22 (Vyvanse) naltrexone 50 mg tablet 25 mg PO BID Weight Loss 02/13/22 05/26/22 pantoprazole 40 mg tablet,delayed 40 mg PO DAILY #90 tabs 02/17/22 05/26/22 release (Protonix) Previous Rx's Medication Instructions Recorded ergocalciferol (vitamin D2) 1,250 50,000 unit PO QWEEK #12 caps 05/08/19 mcg (50,000 unit) capsule valacyclovir 500 mg tablet 500 mg PO Q12H HSV #60 tabs 02/12/20 pantoprazole 40 mg tablet,delayed 40 mg PO DAILY #90 tabs 02/17/22 release (Protonix) Allergies Allergy/AdvReac Type Severity Reaction Status Date / Time Penicillins Allergy Anaphylaxis Verified 05/26/22 18:07 DERMABOND GLUE Allergy Severe Hives Uncoded 05/26/22 18:07 General Stated Complaint: Orthopedic KATIE: 4 Review of Systems Constitutional Constitutional: Denies weakness Musculoskeletal Musculoskeletal: Denies deformity, Reports arthralgias, Denies numbness, Reports stiffness and Denies tingling Integumentary/Breasts Skin/Breast: Denies erythema Neurologic Neurologic: Denies numbness, Denies tingling and Denies weakness PFSH All Active Problems Knee pain, left (Acute) Normal hearing exam (Acute) Tinnitus, bilateral (Acute) Iron deficiency anemia 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 s/p gastric sleeve surgery. Multiple sclerosis (Chronic) 4 enhancing lesions on MRI 2018. unchanged. Anemia (Chronic) Medical History 12 weeks gestation of Acne rosacea 09/17/20. Pt discontinued Doxycycline with + UPT. Rx with topical metrogel 1%/day. ADD (attention deficit disorder) Encounter for laboratory testing for COVID-19 virus Encounter for screening for other viral diseases History of ITP Hoarseness Low back pain Mood disorder Anxiety and Depression Papillary carcinoma of thyroid PTSD (post-traumatic stress disorder) Pt. denies any triggers while under anesthesia Rh negative state in antepartum period Thyroid mass Thyroid nodule Trigeminal neuralgia Vertigo Vocal cord paralysis, unilateral complete Surgical History Bariatric surgery status s/p gastric sleeve H/O arthroscopic knee surgery H/O partial thyroidectomy History of tonsillectomy History of tonsillectomy and adenoidectomy Hx of arthroscopy of left knee Hx of cholecystectomy Hx of LASIK Hx of thyroidectomy angela Family History Father Heart disease Diabetes Mother Hypertension Multiple sclerosis Maternal Aunt Multiple sclerosis Maternal Cousin Multiple sclerosis Paternal Grandmother Breast cancer Social History Smoking/Tobacco Use Status: Former Tobacco Use Quit Date: 10/04/21 Smoking risk assessment performed?: Yes Alcohol Intake: current Alcohol Intake frequency: a few times a week Alcohol type: beer and wine Drug use: Occasionally Substance use type: marijuana Details: smokes, last used last week. Household members: family Number of Children: 1 current occupation: RN [employer] Do you feel safe at home: Yes Do you feel safe in your relationship?: Yes Female Reproductive History Menstrual control method: copper IUCD History History 3 Para 1 Hx # Term Pregnancies 1 Multiple births 0 Hx # Pregnancies 0 Ectopic pregnancies 0 AB induced 0 Hx Number of Living Children 1 AB spontaneous 1 Past Pregnancies Del. Date GA/Weeks # Preg Succ Route Wgt Sex Labor Lgth Anesth esia Location Prov Complic 07/13/15 41 No vaginal 3373.593 g Male 12 hrs once active [facility] 12/04/20 13 Delivery Date: 07/13/15 Last Updated by: Kristy Wilson IOL for postdates: miso x3, nml though baby was a bit blue at first [place] Delivery Date: 12/04/20 Last Updated by: Yanci Giraldo LPN Patient transferred care to [facility] Exam Const General: cooperative, healthy appearing, comfortable and no acute distress Orientation: alert and awake [facility] Head: normal to inspection, normocephalic and atraumatic Mouth: moist mucous membranes Eyes Conjunctivae: conjunctivae normal Neck Neck: normal visual inspection, trachea midline and supple Resp Effort & Inspection: normal respiratory effort and able to speak in complete sentences Cardio Rate: regular rate Rhythm: regular rhythm Skin General skin exam: no rashes or lesions noted Neuro General: patient alert, patient awake, moves all extremities and no focal motor deficits Cognition: normal cognition Speech: speech normal Gait: antalgic (Minimally) Motor: muscle tone normal throughout Sensory Exam: no sensory deficits noted Extrem General: capillary refill normal Elbow/forearm/wrist images: 1. Abrasion 2. Diffuse mild swelling and tenderness, slightly worse over the lateral aspect. Full extension, limited flexion. There is no increased discomfort with varus or valgus stress. Negative anterior draw sign. No deformity. Normal pedal pulse. Psych Appearance: grossly normal Mental Status: mental status grossly normal Course Vital Signs Vital signs: Vital Signs Temperature 36.8 C 05/26/22 18:04 Pulse 86 05/26/22 18:04 Respiratory Rate 18 05/26/22 18:04 Blood Pressure 134/81 05/26/22 18:04 Pulse Oximetry 99 05/26/22 18:04 Temperature 36.8 C 05/26/22 18:04 Temperature Source Temporal Artery Scan 05/26/22 18:04 Pulse 86 05/26/22 18:04 Respiratory Rate 18 05/26/22 18:04 Respiratory Effort Non-Labored 05/26/22 18:09 Blood Pressure 134/81 05/26/22 18:04 Blood Pressure Position Sitting 05/26/22 18:04 Pulse Oximetry 99 05/26/22 18:04 Oxygen Delivery Method Room Air 05/26/22 18:04 Oxygen Flow Rate 0 05/26/22 18:04 PAWSS Have you Been Recently Intoxicated or Drunk Within the Last 30 days?: No Have you Ever Experienced Previous Episodes of Alcohol Withdrawal?: No Have you ever Experienced Withdrawal Seizures?: No Have you ever Experienced Delirium Tremens(DT)s?: No Have you ever undergone Alcohol Rehabilitation Treatment (i.e, inpt ot outpatient treatment programs)?: No Have you ever Experienced Blackouts?: No Have you ever Combined Alcohol with other Downers within the last 90 days?: No Have you ever Combined Alcohol with any other Substance of Abuse during the last 90 days?: No Positive Blood Alcohol level on Presentation? [PCS.BAL]: No Evidence of Increased Autonomic Activity (i.e. HR>120, tremor, sweating, agitation, nausea)?: No Result: 0
--- NOTE | 2022-05-26 19:03 | DI.VRAD_ITS ---
PROCEDURE INFORMATION: Exam: XR Left Knee Exam date and time: 05/26/2022 6:33 PM Age: 36 years old Clinical indication: Other: Fall/pain TECHNIQUE: Imaging protocol: Radiologic exam of the Left knee. Views: 4 or more views. COMPARISON: MRI L LOWER JOINT WO CONT 04/04/2017 3:18 PM FINDINGS: Bones/joints: No fracture or dislocation. No joint effusion. Soft tissues: Soft tissue swelling of the anterior knee region. No gas or foreign body. IMPRESSION: 1. Soft tissue swelling. 2. No fracture, dislocation, or joint effusion. Dictated and Authenticated by: Gerg Kraft MD. Ordering:SOLANGE Lake MD
== END 2022-05-26 19:03 | disposition home or self-care (01) ==
PROVIDERS: Emergency Provider Physician Assistant; PCP Physician Assistant
DX: S80.212A Abrasion, left knee, initial encounter (principal); Z87.891 Personal history of nicotine dependence; W19.XXXA Unspecified fall, initial encounter
CPT/HCPCS: 99283; 73564; 99282

== ENCOUNTER 2022-08-10 19:30 | Outpatient (REF) | payer OTHER, MEDICAID, SELFPAY | END 2022-08-10 19:31 | disposition home or self-care (01) | LOC: LBN 19:30 | PROVIDERS: PCP Physician Assistant; Visit Provider Physician Assistant Medical | DX: J02.9 Acute pharyngitis, unspecified (principal) | CPT/HCPCS: 87070 ==

== ENCOUNTER 2022-10-20 00:40 | Outpatient (CLI) | payer MEDICAID, SELFPAY ==
--- NOTE | 2022-10-20 | DI.MRI_ITS ---
Exam(s) MR THORACIC SPINE WO EXAM: MR THORACIC SPINE WO CLINICAL HISTORY: F/U MS. TECHNIQUE: Multiplanar multisequence MRI of the Thoracic spine was performed. CONTRAST MATERIAL: Noncontrast COMPARISON: MR MR THORACIC SPINE WO from 02/03/2020 FINDINGS: Bones: The vertebral body heights are well maintained. Alignment is satisfactory. The signal characte ristics are unremarkable. Cord: The thoracic cord is normal size and signal intensity. No intrinsic cord lesion is present. Discs: No disc herniation or bulge is present. Soft tissues: Normal. Incidentally noted small right renal cyst. IMPRESSION: Normal MRI examination of the thoracic spine. DATA REPOSITORY:
--- NOTE | 2022-10-20 | DI.MRI_ITS ---
Exam(s) MR CERVICAL SPINE WO EXAM: MR CERVICAL SPINE WO CLINICAL HISTORY: F/U MS TECHNIQUE: Multiplanar multisequence MRI of the cervical spine was performed without intravenous con trast. COMPARISON: MR MRI - CERVICAL SPINE W/WO from 11/09/2016 MR MR BRAIN WO from 02/03/2020 MR MR CERVICAL SPINE WO from 02/03/2020 FINDINGS: BONES: Vertebral body heights are maintained. Alignment is normal. Bone marrow signal intensity is wi thin normal limits. CERVICAL CORD: Craniovertebral junction is unremarkable. The cervical cord is normal size and signal intensity. No focal high signal lesions. SOFT TISSUES: Unremarkable. C2-3: No disc herniation or bulge is identified. No evidence of neural foraminal narrowing. No signi ficant central canal stenosis C3-4: No disc herniation or bulge is identified. No evidence of neural foraminal narrowing. No signif icant central canal stenosis C4-5: No disc herniation or bulge is identified. No evidence of neural foraminal narrowing. No signif icant central canal stenosis C5-6: No disc herniation or bulge is identified. No evidence of neural foraminal narrowing. No signif icant central canal stenosis C6-7: No disc herniation or bulge is identified. No evidence of neural foraminal narrowing. No signif icant central canal stenosis C7-T1: No disc herniation or bulge is identified. No evidence of neural foraminal narrowing. No signi ficant central canal stenosis IMPRESSION: Unremarkable MRI of the cervical spine. DATA REPOSITORY:
--- NOTE | 2022-10-20 | DI.MRI_ITS ---
Exam(s) MR BRAIN WO EXAM: MR BRAIN WO CLINICAL HISTORY: F/U MS, TECHNIQUE: Multiplanar multisequence MRI of the brain was performed. COMPARISON: MR MR BRAIN WO from 02/03/2020 FINDINGS: VENTRICLES AND EXTRA AXIAL SPACES: Normal in size and morphology for the patient's age. MIDLINE SHIFT: None. CEREBRAL PARENCHYMA: No change in size or appearance of the previously noted few white matter lesions bilaterally. The 2 largest lesions are again noted in the left parietal region. No new abnormaliti es. No focus of restricted diffusion to suggest acute infarct. No space-occupying lesion identified. HEMORRHAGE: None. BRAINSTEM/CEREBELLUM: Normal. VISUALIZED PARANASAL SINUSES/MASTOIDS:Clear. [place] [facility] [place]: Normal flow void. PITUITARY GLAND: Unremarkable. ORBITS: Unremarkable. IMPRESSION: Stable white matter lesions. No new abnormalities. DATA REPOSITORY:
== END 2022-10-20 01:00 ==
LOC: DI 00:40
PROVIDERS: PCP Physician Assistant; Visit Provider Psychiatry & Neurology Neurology
DX: G35 Multiple sclerosis (principal)
CPT/HCPCS: 70551; 72141; 72146

== ENCOUNTER 2022-10-25 02:45 | Outpatient (CLI) | payer MEDICAID, SELFPAY ==
[2022-10-25 09:03] LABS: Abs Immature Grans 0.03 10^3/uL (0.0-0.06); Absolute Basophil Count 0.03 10^3/uL (0.0-0.2); Absolute Eosinophil Count 0.11 10^3/uL (0.0-0.7); Absolute Lymphocyte Count 0.85 10^3/uL (1.2-3.4); Absolute Monocyte Count 0.42 10^3/uL (0.1-0.8); Absolute Neutrophil Count 2.05 10^3/uL (1.2-6.7); Basophils % 0.9; Eosinophils % 3.2; HCT 33.4 % (36.0-46.0); HGB 10.5 g/dL (11.2-15.7); Immature Grans % 0.9; Lymphocytes % 24.4; MCH 25.7 pg (27.0-33.0); MCHC 31.4 % (32.0-36.0); MCV 82 fL (80-95); MPV 9.3 fL (8.0-11.0); Neutrophils % 58.6; Platelet Count 310 10^3/uL (130-400); RBC 4.08 10^6/uL (3.93-5.22); RDW 15.1 % (11.7-14.6); RDW-SD 45.3 fL; WBC 3.49 10^3/uL (4.4-10.8)
[2022-10-25 09:34] LABS: Iron 16 ug/dL (50-170); Total Iron Binding Capacity 321 ug/dL (250-450); Transferrin Sat 5 % (15-50)
[2022-10-25 09:58] LABS: Vitamin D 25 Total 16.4 ng/mL (30-100)
[2022-10-25 10:11] LABS: ALT 14 U/L (14-59); AST 19 U/L (15-37); Albumin 3.4 g/dL (3.4-5.0); Alkaline Phosphatase 88 U/L (46-116); Anion Gap 7.6 mmol/L (3-11); BUN 18 mg/dL (7-18); Bilirubin, Total 0.3 mg/dL (0.2-1.0); CO2 27.4 mmol/L (21.0-32.0); CREATININE 0.7 mg/dL (0.55-1.02); Calcium 8.5 mg/dL (8.5-10.1); Calculated LDL 63 mg/dL (<100); Chloride 108 mmol/L (98-107); Cholesterol 139 mg/dL (<200); Estimated GFR 114.88 (mL/min/1.73m2); Ferritin 5 ng/mL (8-252); Glucose 84 mg/dL (74-106); HDL Cholesterol 70 mg/dL (40-60); Magnesium 1.7 mg/dL (1.8-2.4); Potassium 3.6 mmol/L (3.5-5.1); Sodium 143 mmol/L (136-145); Total Protein 6.3 g/dL (6.4-8.2); Triglyceride 34 mg/dL (<150); Vitamin B12 670 pg/mL (193-986)
[2022-10-25 10:42] LABS: PHOSPHORUS 3.9 mg/dL (2.6-4.7)
[2022-10-25 18:30] LABS: Parathyroid Hormone,Intact 71 pg/mL (19-88)
[2022-10-28 12:20] LABS: Copper, Serum 113 mcg/dL (77-206)
[2022-10-28 12:21] LABS: Zinc, S 60 mcg/dL (60-106)
[2022-11-01 00:27] LABS: Thiamine (Vitamin B1), WB 96 nmol/L (70-180)
== END 2022-10-25 02:46 | disposition home or self-care (01) ==
LOC: LBO 02:45
PROVIDERS: PCP Physician Assistant
DX: E21.3 Hyperparathyroidism, unspecified (principal); E61.1 Iron deficiency; E55.9 Vitamin D deficiency, unspecified; E28.2 Polycystic ovarian syndrome; K91.2 Postsurgical malabsorption, not elsewhere classified; G35 Multiple sclerosis; E66.8 Other obesity; Z98.84 Bariatric surgery status
CPT/HCPCS: 36415; 80053; 80061; 82306; 82525; 84630; 82607; 82728; 83540; 83550; 83735; 83970; 84100; 84425; 85025

== ENCOUNTER 2022-12-28 02:10 | Outpatient (CLI) | payer BC, MEDICAID, SELFPAY ==
[2022-12-28 13:06] LABS: Abs Immature Grans 0.03 10^3/uL (0.0-0.06); Absolute Eosinophil Count 0.11 10^3/uL (0.0-0.7); Absolute Lymphocyte Count 1.46 10^3/uL (1.2-3.4); Absolute Monocyte Count 0.48 10^3/uL (0.1-0.8); Basophils % 1.5; Eosinophils % 1.6; HCT 35.8 % (36.0-46.0); HGB 11.3 g/dL (11.2-15.7); Immature Grans % 0.4; Lymphocytes % 21.9; MCH 25.4 pg (27.0-33.0); MCHC 31.6 % (32.0-36.0); MCV 80 fL (80-95); MPV 9.3 fL (8.0-11.0); Monocytes % 7.2; Neutrophils % 67.4; Platelet Count 195 10^3/uL (130-400); RBC 4.45 10^6/uL (3.93-5.22); RDW 15.1 % (11.7-14.6); WBC 6.68 10^3/uL (4.4-10.8)
[2022-12-28 13:12] LABS: Bilirubin Negative (Negative); Blood Negative (Negative); Clarity Clear (Clear); Glucose Negative (Negative); Ketones Negative (Negative); Leukocyte Esterase Negative (Negative); Nitrite Negative (Negative); Specific Gravity 1.025 (1.005-1.025); pH 7.5 (5-8)
[2022-12-28 13:29] LABS: ALT 12 U/L (14-59); AST 18 U/L (15-37); Albumin 3.7 g/dL (3.4-5.0); Alkaline Phosphatase 67 U/L (46-116); Anion Gap 5.6 mmol/L (3-11); BUN 16 mg/dL (7-18); Bilirubin, Total 0.6 mg/dL (0.2-1.0); CO2 27.4 mmol/L (21.0-32.0); CREATININE 0.8 mg/dL (0.55-1.02); Calcium 8.7 mg/dL (8.5-10.1); Chloride 104 mmol/L (98-107); Estimated GFR 97.87 (mL/min/1.73m2); Glucose 82 mg/dL (74-106); Potassium 3.6 mmol/L (3.5-5.1); Sodium 137 mmol/L (136-145)
[2022-12-29 09:16] LABS: IgA 133 mg/dL (85-499); IgG 882 mg/dL (610-1616); IgM 158 mg/dL (35-242)
== END 2022-12-28 02:11 | disposition home or self-care (01) ==
PROVIDERS: PCP Physician Assistant; Visit Provider Psychiatry & Neurology Neurology
DX: G35 Multiple sclerosis (principal)
CPT/HCPCS: 36415; 80053; 82784; 81003; 85025

== ENCOUNTER 2023-01-15 01:19 | Outpatient (CLI) | payer BC, MEDICAID, SELFPAY ==
--- NOTE | 2023-01-15 | DI.MAMMO_ITS ---
Exam(s) MAMMO SCREENING EXAM: MAMMO SCREENING CLINICAL HISTORY: SCREENING, Z12.39 TECHNIQUE: Mammograms were interpreted according to the usual protocol including computer analysis w [employer] CAD system, tomosynthesis and C-view imaging. COMPARISON: 2017 and 2019 FINDINGS: The breasts are composed of mainly fatty density , Breast Density category A. No suspicious masses or suspicious microcalcifications are seen. No skin thickening or abnormal axillary lymph nodes are seen. There has been no significant change from prior exams. IMPRESSION: BI-RADS Category 1, Negative mammogram Yearly screening mammography is recommended. Breast Density - Category A, fatty density. A negative radiographic report should not delay biopsy if a dominant or clinically suspicious mass is present. Up to ten percent of cancers are not identified on mammography. A negative report may reinforce clinical impression. Adenosis and dense breasts may obscure an underlying neoplasm. False positive reports average 6 to 10%. Patient will receive a letter notifying them of these results.
== END 2023-01-15 01:39 ==
PROVIDERS: PCP Physician Assistant; Visit Provider Physician Assistant
DX: Z12.31 Encounter for screening mammogram for malignant neoplasm of breast (principal)
CPT/HCPCS: 77063; 77067

== ENCOUNTER → 2023-04-19 15:18 | Outpatient (CLI) | payer OTHER, SELFPAY ==
--- NOTE | 2023-04-19 14:30 | DI.RAD_ITS ---
Exam(s) XR SACRUM COCCYX EXAM: XR SACRUM COCCYX CLINICAL HISTORY: SACRAL BACK PAIN, M54.89, LOWER LUMBAR, ? BONY ABNORMALITY,. TECHNIQUE: 2D digital imaging was performed. COMPARISON: No exams were available for comparison FINDINGS: 3 views No evidence of sacral fracture nor obvious sacral lesions. Sacroiliac joints appear unremarkable. V isualized disc spaces exhibit normal height. Bone density normal. No osseous lesions. IMPRESSION: No significant radiograph findings in the sacrum. DATA REPOSITORY: RADIATION DOSE DELIVERED:
--- NOTE | 2023-04-19 14:30 | DI.RAD_ITS ---
Exam(s) XR LUMBAR SPINE COMPLETE EXAM: XR LUMBAR SPINE COMPLETE CLINICAL HISTORY: LBP, M54.50 LOWER LUMBAR, ? BONY ABNORMALITY,. TECHNIQUE: 2D digital imaging was performed. COMPARISON: No exams were available for comparison FINDINGS: Five views. No evidence of fracture, listhesis, nor pars interarticularis defects. All of the disc spaces exhibi t normal height. Facet joints unremarkable. Sacroiliac joints appear unremarkable. Bone density no rmal. No osseous lesions. No scoliosis. IMPRESSION: No significant radiograph findings in the lumbosacral spinal column. DATA REPOSITORY: RADIATION DOSE DELIVERED:
== END ==
PROVIDERS: PCP Physician Assistant; Visit Provider Physician Assistant Medical
DX: M54.89 Other dorsalgia (principal)
CPT/HCPCS: 72110; 72220

== ENCOUNTER 2023-06-15 18:27 | Outpatient (REF) | payer OTHER, SELFPAY ==
[2023-06-18 10:38] LABS: Lyme Ab w Rflx to Lyme Confirm Negative (Negative)
== END 2023-06-15 18:28 | disposition home or self-care (01) ==
LOC: LBN 18:27
PROVIDERS: Physician Assistant Medical; PCP Physician Assistant; Visit Provider Physician Assistant
DX: R53.83 Other fatigue (principal)
CPT/HCPCS: 86618

== ENCOUNTER 2023-09-19 03:18 | Outpatient (CLI) | payer OTHER, SELFPAY ==
[2023-09-21 11:09] LABS: TB Interpretation Negative (Negative); TB1 Ag minus Nil 0.01 IU/ml
== END 2023-09-19 03:19 | disposition home or self-care (01) ==
LOC: LBO 03:18
PROVIDERS: PCP Physician Assistant; Visit Provider Physician Assistant
DX: Z11.1 Encounter for screening for respiratory tuberculosis (principal)
CPT/HCPCS: 36415; 86480

== ENCOUNTER → 2023-10-16 02:19 | Outpatient (CLI) | payer OTHER, SELFPAY ==
--- NOTE | 2023-10-16 15:00 | DI.MRI_ITS ---
Exam(s) MR BRAIN WO EXAM: MR BRAIN WO CLINICAL HISTORY: F/U MULTIPLE SCLEROSIS,TRIGEMINAL NEURALGIA,PARESTHESIAS TECHNIQUE: Multiplanar multisequence MRI of the brain was performed. COMPARISON: MR MR BRAIN WO from 10/20/2022 FINDINGS: VENTRICLES AND EXTRA AXIAL SPACES: Normal in size and morphology for the patient's age. MIDLINE SHIFT: None. CEREBRAL PARENCHYMA: No focus of restricted diffusion to suggest acute infarct. No space-occupying le deloris identified. There are stable T2 hyperintense lesions in the white matter. No new lesions are se en. HEMORRHAGE: None. BRAINSTEM/CEREBELLUM: Normal. CALVARIUM: Normal. VISUALIZED PARANASAL SINUSES/MASTOIDS:There is bilateral paranasal sinusitis. Findings are most iram ed in the left maxillary sinus. [place]: Normal flow void. PITUITARY GLAND: Unremarkable. OTHER FINDINGS: None. IMPRESSION: 1. Stable white matter lesions since 10/20/2022. 2. Paranasal sinusitis. The findings are most marked in the left maxillary sinus. DATA REPOSITORY:
== END ==
PROVIDERS: PCP Physician Assistant; Visit Provider Physician Assistant Surgical
DX: R20.2 Paresthesia of skin (principal); G50.0 Trigeminal neuralgia; E55.9 Vitamin D deficiency, unspecified
CPT/HCPCS: 70551

== ENCOUNTER 2023-12-14 17:57 | Outpatient (REF) | payer OTHER, SELFPAY ==
[2023-12-14 19:10] LABS: Bilirubin Negative (Negative); Blood Negative (Negative); Clarity Sl Cloudy (Clear); Glucose Negative (Negative); Ketones Trace mg/dL (Negative); Leukocyte Esterase Negative (Negative); Nitrite Negative (Negative); Specific Gravity >= 1.030 (1.005-1.025); Urobilinogen 0.2 mg/dL (Up to 0.2)
== END 2023-12-14 17:58 | disposition home or self-care (01) ==
LOC: NCHCN 17:57
PROVIDERS: PCP Physician Assistant; Visit Provider Family Medicine
DX: R10.2 Pelvic and perineal pain (principal); R82.998 Other abnormal findings in urine; Z11.3 Encounter for screening for infections with a predominantly sexual mode of transmission
CPT/HCPCS: 87491; 87591; 81003; 87480; 87510; 87660

== ENCOUNTER → 2023-12-20 03:21 | Outpatient (CLI) | payer MEDICAID, SELFPAY ==
--- NOTE | 2023-12-20 | DI.US_ITS ---
Exam(s) US PELVIS TRANSVAGINAL EXAM: US PELVIS TRANSVAGINAL CLINICAL HISTORY: PELVIC PAIN,R10.2. TECHNIQUE: Transabdominal and transvaginal pelvic ultrasound was performed using standard protocol. COMPARISON: No exams were available for comparison FINDINGS: UTERUS: Position: Retroverted. Size: 7.3 long by 4.4 AP by 5.2 transverse cm Endometrium: 0.9 cm. Normal for patient's menstrual status. Myometrium: There does appear to be an isoechoic fibroid in the anterior and right aspect of the fund us measuring 2.2 cm maximally. Cervix: Unremarkable. OVARIES: Right: 3.4 x 2.0 x 2.8 cm Cyst or mass: No suspicious cystic or solid masses. Left: 4.0 x 2.1 x 3.5 cm Cyst or mass: No suspicious cystic or solid masses. DOPPLER: Color: Symmetric and uniform flow to both ovaries. CUL-DE-SAC: Free fluid: There is a small amount of free fluid in the pelvis adjacent to the left ovary in the fun dus of the uterus. Other: None. IMPRESSION: 1. Normal-appearing uterus with endometrial stripe within normal limits. 2. Unremarkable bilateral ovaries. 3. Small uterine fibroid. DATA REPOSITORY:
== END ==
PROVIDERS: PCP Physician Assistant; Visit Provider Family Medicine
DX: R10.2 Pelvic and perineal pain (principal); D25.1 Intramural leiomyoma of uterus
CPT/HCPCS: 76830; 76856

== ENCOUNTER 2024-01-15 18:24 | Emergency (ER) | payer MEDICAID, SELFPAY ==
[2024-01-15 18:27] VITALS: BP 156/88; PULSE 62; RESP 18; TEMP 36.8; O2SAT 100
--- NOTE | 2024-01-15 18:51 | ED.GENADUL_ITS ---
Discharge Plan Disposition Patient Disposition: Home Condition: Good Discharge Details Clinical Impression: Headache Primary Care Provider: Jhoan Knox ED Provider: Linda Shen Home Meds and New Rx's Prescriptions: Continued ergocalciferol (vitamin D2) 50,000 unit capsule 50,000 unit PO QWEEK Qty: 12 3RF levothyroxine 88 mcg capsule 88 mcg PO DAILY oxcarbazepine 150 mg tablet 150 mg PO BID PRN lisdexamfetamine [Vyvanse] 20 mg capsule 20 mg PO DAILY valacyclovir 500 mg tablet 500 mg PO Q12H Qty: 60 3RF Rx Instructions: 500 mg PO q12h x 5 days then q daily thereafter for suppression. melatonin 3 mg capsule 6 mg PO HS PRN escitalopram oxalate 20 mg tablet 20 mg PO DAILY Finacea 15 % foam 1 applic topical BID Discharge Instructions Instructions: General Headache (ED) Additional Instructions: Call your primary care doctor tomorrow to schedule an appointment within one week to followup on your visit here. Return to the emergency department for new or worsening symptoms including new/different/worse headache, fever, or if you have any other concerns. Referrals: Jhoan Knox [Primary Care Provider] - [facility] General Mode of arrival: ambulatory . Date/Time Provider Initiated Documentation: 01/15/24 18:42 . Limitations to Documentation: no limitations . Information obtained by: patient . HPI Narrative: 38yo F with history of migraines and MS presenting for acute headache. Started while driving home from work this evening. Bilateral retroorbital pain and tightness with associated nasuea and vomiting. Photosensitive. Today sensitive to smells. Aside from new odour sensitivity, this is typical of her prior migraines. No fevers or neck pain. Not maximal at onset. No recent head trauma. No double vision, vertigo, numbness, tingling, or weakness. No abdominal pain, chest pain, or shortness of breath. Otherwise in her usual state of health. Related Data Home Medications Medication Instructions Recorded Confirmed ergocalciferol (vitamin D2) 1,250 50,000 unit PO QWEEK #12 caps 05/08/19 01/15/24 mcg (50,000 unit) capsule valacyclovir 500 mg tablet 500 mg PO Q12H HSV #60 tabs 02/12/20 01/15/24 levothyroxine 88 mcg capsule 88 mcg PO DAILY 09/29/20 01/15/24 azelaic acid 15 % topical foam 1 applic topical BID 09/26/21 01/15/24 (Finacea) escitalopram oxalate 20 mg tablet 20 mg PO DAILY 09/26/21 01/15/24 melatonin 3 mg capsule 6 mg PO HS PRN 09/26/21 01/15/24 oxcarbazepine 150 mg tablet 150 mg PO BID PRN 02/09/22 01/15/24 lisdexamfetamine 20 mg capsule 20 mg PO DAILY 02/10/22 01/15/24 (Vyvanse) Previous Rx's Medication Instructions Recorded ergocalciferol (vitamin D2) 1,250 50,000 unit PO QWEEK #12 caps 05/08/19 mcg (50,000 unit) capsule valacyclovir 500 mg tablet 500 mg PO Q12H HSV #60 tabs 02/12/20 Allergies Allergy/AdvReac Type Severity Reaction Status Date / Time Penicillins Allergy Anaphylaxis Verified 01/15/24 18:29 DERMABOND GLUE Allergy Severe Hives Uncoded 01/15/24 18:29 General Stated Complaint: Headache KATIE: 3 Review of Systems Narrative: see HPI Exam Narrative Exam Narrative: General: Alert, well appearing, well nourished, Head: Normocephalic, atraumatic Neck: Trachea midline, ?Neck supple. ENT: ?MMM.? Cardiac: ?RRR, no murmurs appreciated Resp: No respiratory distress. CTAB. Abd: ?Non-distended. Extremities: ?No deformities.? No peripheral edema. Neuro: ? GCS 15.? PERRL.? EOMI.? No asymetry. Normal hearing to speech. No uvular deviation. Fluent speech, no dysarthria. Motor- 5/5 strength symmetric bilateral upper and lower extremities Sensation- ?Intact to light touch and symmetric multiple dermatomes including upper and lower extremities Gait/station: ?Normal stance.? No truncal ataxia. Steady gait with equal normal steps Course Vital Signs Vital signs: Vital Signs Temperature 36.8 C 01/15/24 18: Pulse 62 01/15/24 18:27 Respiratory Rate 18 01/15/24 18:27 Blood Pressure 156/88 H 01/15/24 18:27 Pulse Oximetry 100 01/15/24 18:27 Temperature 36.8 C 01/15/24 18:27 Temperature Source Skin 01/15/24 18:27 Pulse 62 01/15/24 18:27 Respiratory Rate 18 01/15/24 18:27 Respiratory Effort Normal, Non-Labored 01/15/24 18:29 Blood Pressure 156/88 H 01/15/24 18:27 Blood Pressure Position Sitting 01/15/24 18:27 Pulse Oximetry 100 01/15/24 18:27 Oxygen Delivery Method Room Air 01/15/24 18:27 Oxygen Flow Rate 0 01/15/24 18:27 Pain Level 9 01/15/24 18:27 Medical Decision Making 38yo F with history of migraines and MS presenting for acute headache typical of her prior migraines. Has had optic neuritis in the past and this does not feel at all similar to that. No neurologic symptoms or vision changes. No red flags for headache on history. Vital signs and physical exam reassuring, normal neurologic exam. Not consistent with SAH, intracranial mass, meningitis, encephalitis, giant cell arteritis, or other life threatening etiology. Would not get labs or CT imaging. Will treat with IVF, zofran, tylenol, toradol, compazine, and Benadryl. On reassessment she reports pain has improved, requests discharge home. Discharged home; discharge instructions and return precautions were reviewed with patient who verbalized understanding. All questions were answered and she is in full agreement with the plan. 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 s/p gastric sleeve surgery. Multiple sclerosis (Chronic) 4 enhancing lesions on MRI 2018. unchanged. Anemia (Chronic) Medical History 12 weeks gestation of Acne rosacea 09/17/20. Pt discontinued Doxycycline with + UPT. Rx with topical metrogel 1%/day. ADD (attention deficit disorder) Encounter for laboratory testing for COVID-19 virus Encounter for screening for other viral diseases History of ITP Hoarseness Low back pain Mood disorder Anxiety and Depression Papillary carcinoma of thyroid PTSD (post-traumatic stress disorder) Pt. denies any triggers while under anesthesia Rh negative state in antepartum period Thyroid mass Thyroid nodule Trigeminal neuralgia Vertigo Vocal cord paralysis, unilateral complete Surgical History Bariatric surgery status s/p gastric sleeve H/O arthroscopic knee surgery H/O partial thyroidectomy History of tonsillectomy History of tonsillectomy and adenoidectomy Hx of arthroscopy of left knee Hx of cholecystectomy Hx of LASIK Hx of thyroidectomy angela Family History Father Heart disease Diabetes Mother Hypertension Multiple sclerosis Maternal Aunt Multiple sclerosis Maternal Cousin Multiple sclerosis Paternal Grandmother Breast cancer Social History Smoking/Tobacco Use Status: Former Tobacco Use Quit Date: 10/04/21 Smoking risk assessment performed?: Yes Alcohol Intake: current Alcohol Intake frequency: a few times a week Alcohol type: beer and wine Drug use: Occasionally Substance use type: marijuana Details: smokes, last used last week. Household members: family Number of Children: 1 current occupation: RN [employer] Do you feel safe at home: Yes Do you feel safe in your relationship?: Yes Female Reproductive History Menstrual control method: copper IUCD History History 3 Para 1 Hx # Term Pregnancies 1 Multiple births 0 Hx # Pregnancies 0 Ectopic pregnancies 0 AB induced 0 Hx Number of Living Children 1 AB spontaneous 1 Past Pregnancies Del. Date GA/Weeks # Preg Succ Route Wgt Sex Labor Lgth Anesth esia Location Prov Complic 07/13/15 41 No vaginal 3373.593 g Male 12 hrs once active [facility] 12/04/20 13 Delivery Date: 07/13/15 Last Updated by: Kristy Wilson IOL for postdates: miso x3, nml though baby was a bit blue at first [place] Delivery Date: 12/04/20 Last Updated by: Yanci Giraldo LPN Patient transferred care to [facility]
[2024-01-15] MEDS: Prochlorperazine 10 MG/2 ML VIAL IVP (19:10)
[2024-01-15] MEDS: Ondansetron 4 MG/2 ML VIAL IVP (19:10)
[2024-01-15] MEDS: diphenhydrAMINE 50 MG/ML VIAL 25 MG IVP (19:10)
[2024-01-15] MEDS: Normal Saline 1,000 ML 1000 ML IV (19:10)
[2024-01-15] MEDS: ACETAMINOPHEN 1,000 MG/100 ML BTL 400 MG IVPB (19:10)
[2024-01-15] MEDS: Ketorolac 15 MG/ML VIAL IVP (19:10)
== END 2024-01-15 20:41 | disposition home or self-care (01) ==
PROVIDERS: Emergency Provider Student in an Organized Health Care Education/Training Program; PCP Physician Assistant
DX: G43.909 Migraine, unspecified, not intractable, without status migrainosus (principal); G35 Multiple sclerosis; Z98.84 Bariatric surgery status; Z87.891 Personal history of nicotine dependence
CPT/HCPCS: 36415; 96361; 96365; 96375; 99284; 99283; J0131; J0780; J1200; J1885; J2405

== ENCOUNTER 2024-07-24 18:13 | Outpatient (REF) | payer MEDICAID, SELFPAY ==
[2024-07-24 18:36] LABS: HCT 40.8 % (36.0-46.0); HGB 13.4 g/dL (11.2-15.7); MCH 29.2 pg (27.0-33.0); MCHC 32.8 % (32.0-36.0); MCV 89 fL (80-95); MPV 9.6 fL (8.0-11.0); Platelet Count 339 10^3/uL (130-400); RBC 4.59 10^6/uL (3.93-5.22); RDW-SD 42.2 fL; WBC 7.49 10^3/uL (4.4-10.8)
[2024-07-24 18:54] LABS: Iron 77 ug/dL (50-170); Total Iron Binding Capacity 360 ug/dL (250-450)
[2024-07-24 19:04] LABS: ALT 18 U/L (14-59); AST 15 U/L (15-37); Albumin 3.8 g/dL (3.4-5.0); Alkaline Phosphatase 73 U/L (46-116); BUN 16 mg/dL (7-18); Bilirubin, Total 0.72 mg/dL (0.2-1.0); CREATININE 0.8 mg/dL (0.55-1.02); Calcium 9.1 mg/dL (8.5-10.1); Chloride 106 mmol/L (98-107); Estimated GFR 97.26 (mL/min/1.73m2); Ferritin 14 ng/mL (8-252); Glucose 93 mg/dL (74-106); Potassium 4.3 mmol/L (3.5-5.1); Sodium 140 mmol/L (136-145); TSH 1.89 uIU/mL (0.36-3.74); Total Protein 6.9 g/dL (6.4-8.2)
== END 2024-07-24 18:14 | disposition home or self-care (01) ==
LOC: NCHCN 18:13
PROVIDERS: PCP Physician Assistant; Visit Provider Physician Assistant
DX: D64.9 Anemia, unspecified (principal); E03.9 Hypothyroidism, unspecified
CPT/HCPCS: 80053; 85027; 82728; 83540; 83550; 84443

== ENCOUNTER 2024-07-30 01:07 | Outpatient (CLI) | payer OTHER, MEDICAID, SELFPAY ==
--- NOTE | 2024-07-30 | DI.MAMMO_ITS ---
Exam(s) MAMMO SCREENING EXAM: MAMMO SCREENING CLINICAL HISTORY: SCREENING, Z12.31 TECHNIQUE: Bilateral full field digital CC and MLO mammographic images were obtained with 3D tomosyn thesis and utilizing computer aided detection (CAD). COMPARISON: Available for comparison. FINDINGS: Masses/Architectural Distortion: None seen. Microcalcifications: No suspicious pleomorphic-type are seen. Skin Thickening/Nipple Retraction: None. IMPRESSION: 1. No significant interval change with no specific features of malignancy noted. 2. Unless there is more urgent need, screening mammography is recommended, as per [place] [employer] guidelines. BI-RADS Category 1 - Negative Breast Density - Category B - Scattered areas of fibroglandular density Breast density category C or D implies that the patient has dense breast tissue. Dense breast tissue is very common and is not abnormal but dense breast tissue can make it harder to find cancer on a ma mmogram. Also, dense breast tissue may increase their breast cancer risk. This information about the result of the mammogram report was provided to the patient to raise their awareness. Use this report when you speak with the patient about their risks for breast cancer, which includes their family hist ory. At that time, you may recommend for more screening tests (Ultrasound or MRI) as they might be us eful based on their risk. A negative radiographic report should not delay biopsy if a dominant or clinically suspicious mass is present. Up to ten percent of cancers are not identified on mammography. A negative report may reinforce clinical impression. Adenosis and dense breasts may obscure an underlying neoplasm. False positive reports average 6 to 10%. Patient will receive a letter notifying them of these results.
== END 2024-07-30 01:27 ==
PROVIDERS: PCP Physician Assistant; Visit Provider Physician Assistant
DX: Z12.31 Encounter for screening mammogram for malignant neoplasm of breast (principal); R92.323 Mammographic fibroglandular density, bilateral breasts
CPT/HCPCS: 77063; 77067

== ENCOUNTER 2025-01-05 12:50 | Outpatient (REF) | payer SELFPAY ==
[2025-01-05 16:20] LABS: ESR 2 mm/hr (0-20)
[2025-01-05 16:48] LABS: C-Reactive Protein < 0.50 mg/dL (<or=0.5)
[2025-01-05 22:08] LABS: Rheumatoid Factor <8.6 IU/mL (<12.0)
[2025-01-06 10:03] LABS: Cyclic Citrullinated Peptide <2.5 U/mL (<5.0)
[2025-01-06 14:41] LABS: dsDNA Ab, IgG <22.0 IU/mL (<27.0)
[2025-01-06 15:25] LABS: ANA Interpretation Negative (Negative)
== END 2025-01-05 12:51 | disposition home or self-care (01) ==
LOC: NCHCN 12:50
PROVIDERS: PCP Physician Assistant; Visit Provider Physician Assistant
DX: M25.541 Pain in joints of right hand (principal); M25.542 Pain in joints of left hand
CPT/HCPCS: 85652; 86200; 86038; 86140; 86225; 86431

== ENCOUNTER 2025-03-23 02:07 | Outpatient (CLI) | payer OTHER, SELFPAY ==
[2025-03-23 09:21] LABS: Abs Immature Grans 0.05 10^3/uL (0.0-0.06); HCT 40.4 % (36.0-46.0); HGB 13.1 g/dL (11.2-15.7); Immature Grans % 0.9 %; MCH 28.2 pg (27.0-33.0); MCHC 32.4 % (32.0-36.0); MCV 87 fL (80-95); MPV 9.9 fL (8.0-11.0); Platelet Count 316 10^3/uL (130-400); RBC 4.65 10^6/uL (3.93-5.22); RDW 13.5 % (11.7-14.6); RDW-SD 42.1 fL; WBC 5.87 10^3/uL (4.4-10.8)
[2025-03-23 10:03] LABS: Hemoglobin A1C 4.7 % (<5.7)
[2025-03-23 10:22] LABS: Iron 51 ug/dL (50-170); Total Iron Binding Capacity 349 ug/dL (250-450); Transferrin Sat 15 % (15-50)
[2025-03-23 10:32] LABS: TSH 1.59 uIU/mL (0.36-3.74)
[2025-03-23 10:45] LABS: Vitamin D 25 Total 19 ng/mL (30-100)
[2025-03-23 10:57] LABS: ALT 15 U/L (14-59); AST 13 U/L (15-37); Albumin 3.8 g/dL (3.4-5.0); Alkaline Phosphatase 72 U/L (46-116); Anion Gap 5.9 mmol/L (3-11); BUN 18 mg/dL (7-18); Bilirubin, Total 0.6 mg/dL (0.2-1.0); CO2 29.1 mmol/L (21.0-32.0); Calcium 8.9 mg/dL (8.5-10.1); Calculated LDL 88 mg/dL (<100); Chloride 106 mmol/L (98-107); Cholesterol 168 mg/dL (<200); Estimated GFR 96.66 (mL/min/1.73m2); Ferritin 10 ng/mL (8-252); Folate 6.8 ng/mL (8.6-20.0); Glucose 80 mg/dL (74-106); HDL Cholesterol 69 mg/dL (>or=50); Magnesium 2.0 mg/dL (1.8-2.4); Potassium 3.9 mmol/L (3.5-5.1); Sodium 141 mmol/L (136-145); Total Protein 6.9 g/dL (6.4-8.2); Triglyceride 55 mg/dL (<150); Vitamin B12 434 pg/mL (193-986)
[2025-03-25 12:11] LABS: Zinc, S 72 mcg/dL (60-106)
[2025-03-25 12:12] LABS: Copper, Serum 114 mcg/dL (77-206)
[2025-03-26 16:44] LABS: Thiamine (Vitamin B1), WB 110 nmol/L (70-180)
[2025-03-26 22:52] LABS: Free Retinol (Vitamin A) 43.4 mcg/dL (32.5-78.0)
[2025-03-28 09:49] LABS: Vitamin E, Serum 9.1 mg/L (5.5 - 17.0)
== END 2025-03-23 02:08 | disposition home or self-care (01) ==
PROVIDERS: PCP Physician Assistant; Visit Provider Internal Medicine
DX: R63.5 Abnormal weight gain (principal); Z98.84 Bariatric surgery status; E21.3 Hyperparathyroidism, unspecified; E61.1 Iron deficiency; E66.9 Obesity, unspecified; E55.9 Vitamin D deficiency, unspecified; G35 Multiple sclerosis; E28.2 Polycystic ovarian syndrome
CPT/HCPCS: 36415; 80053; 80061; 82306; 82525; 84630; 82607; 82728; 82746; 83036; 83525; 83540; 83550; 83735; 83970; 84100; 84425; 84432; 84443; 84446; 84590; 84597; 85025; 86800

== ENCOUNTER 2025-07-09 16:54 | Outpatient (CLI) | payer OTHER, SELFPAY ==
[2025-07-09 15:21] LABS: Abs Immature Grans 0.06 10^3/uL (0.0-0.06); HCT 39.7 % (36.0-46.0); HGB 13.5 g/dL (11.2-15.7); Immature Grans % 0.7 %; MCH 29.9 pg (27.0-33.0); MCHC 34.0 % (32.0-36.0); MCV 88 fL (80-95); MPV 9.5 fL (8.0-11.0); Platelet Count 373 10^3/uL (130-400); RBC 4.52 10^6/uL (3.93-5.22); RDW 12.8 % (11.7-14.6); RDW-SD 40.9 fL; WBC 8.10 10^3/uL (4.4-10.8)
[2025-07-09 15:22] LABS: ESR 1 mm/hr (0-20)
[2025-07-09 15:23] LABS: Glucose Negative (Negative)
[2025-07-09 16:24] LABS: ALT 10 U/L (14-59); AST 13 U/L (15-37); Albumin 3.8 g/dL (3.4-5.0); Alkaline Phosphatase 72 U/L (46-116); Anion Gap 9.5 mmol/L (3-11); BUN 19 mg/dL (7-18); Bilirubin, Total 0.5 mg/dL (0.2-1.0); CO2 26.5 mmol/L (21.0-32.0); Calcium 8.6 mg/dL (8.5-10.1); Chloride 107 mmol/L (98-107); Glucose 94 mg/dL (74-106); Potassium 3.7 mmol/L (3.5-5.1); Sodium 143 mmol/L (136-145); Total Protein 7.1 g/dL (6.4-8.2)
== END 2025-07-09 16:55 | disposition home or self-care (01) ==
LOC: LBO 16:56
PROVIDERS: PCP Physician Assistant; Visit Provider Psychiatry & Neurology Neurology
DX: G35.D Multiple sclerosis, unspecified (principal)
CPT/HCPCS: 36415; 80053; 82784; 85652; 81003; 85025